=== PATIENT | female | born 1970 | race Caucasian/White ===

== ENCOUNTER → 2022-03-19 13:42 | Outpatient (BNVA) | payer OTHER, SELFPAY | PROVIDERS: PCP Internal Medicine; Visit Provider Surgery | DX: K42.9 Umbilical hernia without obstruction or gangrene (principal); M54.9 Dorsalgia, unspecified; Z79.891 Long term (current) use of opiate analgesic | CPT/HCPCS: 99202 ==

== ENCOUNTER 2022-08-22 13:29 | Outpatient (REF) | payer OTHER, SELFPAY ==
--- NOTE | ~2022-08-22 | XR_ITS ---
EXAMINATION: XR LUMBOSACRAL SPINE CLINICAL INFORMATION: Dorsalgia. COMPARISON: None available. TECHNIQUE: AP and lateral views of the lumbar spine and lateral view of the lumbosacral junction. FINDINGS: Vertebral body heights are normal. At L2-L3, there is a 3 mm retrolisthesis. At L3-L4 and L5-S1, there is mild posterior disc space narrowing. The remaining disc spaces are relatively well-maintained. No acute fracture or spondylolisthesis is seen. There is moderate anterior spondylosis at L2-L3 and L3-L4. The posterior elements are intact. The paravertebral soft tissues are unremarkable. XR/XR lumbar spine 2-3V IMPRESSION: 1. There is moderate degenerative disc disease at L2-L3, and mild degenerative disc disease is seen at L3-L4 and L5-S1. 2. There is moderate anterior spondylosis at L2-L3 and L3-L4.
== END 2022-08-22 13:30 | disposition home or self-care (01) ==
LOC: HO.XRAY 13:29
PROVIDERS: PCP Internal Medicine; Visit Provider Internal Medicine
DX: M54.9 Dorsalgia, unspecified (principal)
CPT/HCPCS: 72100

== ENCOUNTER 2023-08-18 15:37 | Outpatient (AMB) | payer OTHER, SELFPAY ==
--- NOTE | 2023-08-18 15:52 | MHC.OFFVIS ---
Intake Vital Signs 08/18/23 15:58 08/18/23 15:58 Height 5 ft 7 in Weight 201 lb BMI 31.5 BP 130/74 Blood Pressure Location Lt brachial Position Sitting Respiration 16 Pulse 80 Intake Visit Reasons: umbilical hernia Intake Note: Pt states, I have a hernia and I want to get it removed. c/o increase in size and discomfort, interfering with daily life. Appliance Service Representative Required: No Allergies No Known Allergies Allergy (Verified 08/18/23 15:53) Medication List - Last Reconciled 08/18/23 by Asael Madrid RN methadone 80 mg PO Q4H HPI HPI Comments History of Present Illness Details 52-year-old female presenting with complaints of an umbilical hernia which is been present for several years but is gradually increasing in size. She reports a prior history of bladder surgery as a child but feels this is not associated with the prior incision. She does report complaints of constipation and frequently requires medication to have a bowel movement including lactulose and MiraLax. She denies any nausea, vomiting, fever or chills. She denies a previous history of an umbilical hernia surgery. [facility] [place] Medical History Low back pain Back pain Umbilical hernia Surgical History History of cardiac radiofrequency ablation (RFA) History of bladder surgery Social History Housing: [facility] Patient Tobacco Use Status: Former Tobacco user Quit Date: 2016 Tobacco use type: Cigarette e-Cigarette/Vaping Use: Never Used service: No Current occupational status: unemployed Review of Systems Const All systems reviewed & are unremarkable except as noted in HPI and below Denies chills, Denies fever(s), Denies headache(s), Denies poor appetite and Denies weakness ENT Denies headache(s) Card Denies chest pain, Denies irregular heart rhythm, Denies palpitations and Denies dyspnea Resp Denies cough, Denies excessive phlegm production and Denies dyspnea GI Denies abdominal pain, Denies bloating, Denies change in bowel habits, Denies constipation, Denies heartburn, Denies diarrhea, Denies nausea and Denies vomiting Denies urinary frequency Musc Denies back pain, Denies muscle weakness and Denies numbness Skin/Breast Denies changing lesions and Denies unusual bruising Neuro Denies headache(s), Denies numbness, Denies paresthesias and Denies weakness Psych Denies anxiety and Denies depression Endo Denies palpitations Stevan/Lymph Denies lymphadenopathy Physical Exam Vital Signs: Last Vital Signs Pulse 80 08/18/23 15:58 Resp 16 08/18/23 15:58 BP 130/74 08/18/23 15:58 BMI result Body Mass Index 31.5 Const General: cooperative and no acute distress Nutritional Appearance: well nourished Orientation/consciousness: patient oriented x3 Limitations: no limitations HEENT Head: Yes normocephalic and Yes atraumatic Ears: hearing grossly normal bilaterally Resp Effort & Inspection: normal respiratory effort, no audible wheezes, no cough and no respiratory distress Cardio Jugular venous distension: no JVD GI Other: 4 cm reducible umbilical hernia noted in the standing position. The hernia increases in size with Valsalva maneuvers but does reduce with light pressure. No overlying skin changes are appreciated. Inspection: Yes normal to inspection Skin Other: Warm, dry, no rash Neuro General: patient oriented x3 Extrem General: Yes no clubbing, cyanosis or edema Assessment & Plan Assessment & Plan (1) Umbilical hernia: Code(s): K42.9 - Umbilical hernia without obstruction or gangrene Plan 52-year-old female with a reducible umbilical hernia measuring approximately 4 cm in diameter. I recommended repair of this umbilical hernia with mesh and after discussion of the procedure, risks, and alternatives, she consents to the repair of umbilical hernia with mesh as a short-stay surgery. Coding Level of Care Code New Pt Level 4 (26618) Diagnoses Umbilical hernia K42.9
[2023-08-18 15:58] VITALS: BP 130/74; PULSE 80; RESP 16; BMI 31.5
== END 2023-08-18 16:31 | disposition home or self-care (01) ==
PROVIDERS: PCP Internal Medicine; Visit Provider Surgery
DX: K42.9 Umbilical hernia without obstruction or gangrene (principal)
CPT/HCPCS: 99204

== ENCOUNTER → 2023-08-18 15:37 | Outpatient (BNVA) | payer OTHER, SELFPAY | PROVIDERS: PCP Internal Medicine; Visit Provider Surgery | DX: K42.9 Umbilical hernia without obstruction or gangrene (principal) | CPT/HCPCS: 99202 ==

== ENCOUNTER 2023-08-31 07:03 | Day surgery (SDC) | payer OTHER, SELFPAY ==
--- NOTE | 2023-08-27 13:17 | HO.ANESPROP2 ---
Documented by User: Chantelle Montalvo NP 08/27/23 13:22 HPI - Anesthesia Eval Consult details Narrative: 52yo F for Hernia Umbilical Reducible with mesh Methadone daily Hx polysub PMFSH Active Problems Active Problems: All Active Problems (Updated 08/27/23 @ 08:49 by Dee Dee Flood, YOMAIRA) Chronic prescription opiate use (Acute) Umbilical hernia (Acute) Back pain (Acute) Low back pain (Acute) Past Medical History Medical History Arthritis Varicose veins of both lower extremities Infection Opioid abuse Neuralgia Menorrhagia Ex-cigarette smoker Anxiety Agoraphobia SVT (supraventricular tachycardia) Polysubstance abuse Low back pain Back pain Umbilical hernia Surgical History Surgical History (Updated 08/31/23 @ 07:44 by Lacey Vaz RN) Status post excision of lipoma H/O dilation and curettage History of cardiac radiofrequency ablation (RFA) History of bladder surgery Social History Social History Housing: House Patient Tobacco Use Status: Former Tobacco user Quit Date: 2016 Tobacco use type: Cigarette e-Cigarette/Vaping Use: Never Used Advance Directives: No Advance Directives Information Provided: Yes service: No Current occupational status: unemployed Meds Allergies Allergy/AdvReac Type Severity Reaction Status Date / Time No Known Allergies Allergy Verified 08/31/23 07:44 Home Medications Medication Instructions Recorded Confirmed Last Taken Type methadone 10 mg/mL oral concentrate 80 mg PO DAILY 08/18/23 08/26/23 08/31/23 06:30 History Assessment and Plan Assessment Anesthesia Assessment: Chart Reviewed Documented by User: Brodie Fraser MD 08/31/23 07:56 PMFSH Past Medical History Medical History Arthritis Varicose veins of both lower extremities Infection Opioid abuse Neuralgia Menorrhagia Ex-cigarette smoker Anxiety Agoraphobia SVT (supraventricular tachycardia) Polysubstance abuse Low back pain Back pain Umbilical hernia Family History Family history of problems with anesthesia: No Surgical History Surgical History (Updated 08/31/23 @ 07:44 by Lacey Vaz RN) Status post excision of lipoma H/O dilation and curettage History of cardiac radiofrequency ablation (RFA) History of bladder surgery History of Problems with Anesthesia: No Social History Social History Housing: House Patient Tobacco Use Status: Former Tobacco user Quit Date: 2016 Tobacco use type: Cigarette e-Cigarette/Vaping Use: Never Used Advance Directives: No Advance Directives Information Provided: Yes service: No Current occupational status: unemployed Meds Allergies Allergy/AdvReac Type Severity Reaction Status Date / Time No Known Allergies Allergy Verified 08/31/23 07:44 Home Medications Medication Instructions Recorded Confirmed Last Taken Type methadone 10 mg/mL oral concentrate 80 mg PO DAILY 08/18/23 08/26/23 08/31/23 06:30 History Exam Airway Mallampati Class: II TM Dist: >3cm Neck ROM: Full Loose/Missing/Broken Teeth: Yes (multiple cracked and broken, poor) Heart: rrr Lungs: cta Assessment and Plan Final Anesthetic Review Family History of Problems with Anesthesia: No History of Problems with Anesthesia: No NPO: Yes ASA Class: II Final Preanesthetic Review: No Changes in Pt Med Stat, Meds/Allgs Chart Reviewed, Consent Obtained/Reviewed and Anes Risks/Benef Reviewed Patient Risk: Intermediate Procedure Risk: Low Anesthetic Plan Anesthetic Plan: GA Disposition: Standard PACU
[2023-08-31] VITALS (9 sets, daily range): BP systolic 142–176; BP diastolic 66–93; PULSE 72–82; RESP 12–20; TEMP 36.1–36.3; O2SAT 88–100; BMI 31.6
[2023-08-31] MEDS: Lactated Ringers 1,000 ML 100 ML IVCONT (08:19)
--- NOTE | 2023-08-31 08:20 | MHC.SHP ---
Pre-Procedural Eval Section A - 24 Hr Update-Section A only Date of Service: 08/31/23 The patient is an INPATIENT: No Changes since office visit: Yes Patient answered all questions; No Cold of Flu in the past 2 weeks, No New Medical Problems and No Changes in Medication The patient has been examined within 24 hours of the surgical procedure. The History & Physical has been completed within 30 days and I have reviewed it.: Yes Section B - Complete if H&P > 30 days Chief Complaint: Umbilical hernia without obstruction or gangrene Allergies: Allergies Allergy/AdvReac Type Severity Reaction Status Date / Time No Known Allergies Allergy Verified 08/31/23 07:44 Plan Diagnosis/Plan: Unchanged I have reviewed the history and physical and performed a pertinent physical examination on my patient. No changes have occurred unless specified. Time Spent With Patient Time: Total time managing care of this patient today ____ minutes.
--- NOTE | 2023-08-31 08:34 | W.PM.OPN ---
Operative Note Operative Note Date of Service: 08/31/23 Narrative: Preoperative diagnosis: Umbilical hernia, reducible Postoperative diagnosis: Same Procedure: Repair of umbilical hernia with mesh Surgeon: Rick Gamble MD Polisher And Sander: Helen Garcia PA-C, REMI Delong Anesthesia: General LMA Indications for procedure: 52-year-old female patient presenting with a reducible 4 cm umbilical hernia. Operative findings: 4 cm umbilical hernia defect Specimen: None Estimated blood loss: 2 mL Complications: None Procedure details: Patient was brought to the OR placed in a supine position. After administering general anesthesia the patient's abdomen was prepped with ChloraPrep and draped in a sterile fashion. A surgical time-out was called the consent confirmed. Patient received preoperative antibiotics and Venodyne boots were in place. Local anesthesia was then infiltrated across the for portion of the umbilicus in a transverse fashion. Incision was then made with a scalpel and carried down into the subcutaneous tissue. The hernia sac was then dissected from the surrounding subcutaneous tissue down to the fascial defect. Hernia sac was entered and omentum found within the hernia sac. This was adherent to the peritoneal sac therefore after lysis of adhesions, the omentum was returned to the abdominal cavity. The sac was then completely dissected into the preperitoneal space. The sac was then reduced into the abdominal cavity and a preperitoneal space further defined using electrocautery. A 6.4 cm round Ventralex mesh was then obtained. This was deployed within the preperitoneal space and secured in 4 quadrants using a 0 Tycron suture. Fascia was then closed over the mesh using a [id number] interrupted 0 Tycron sutures. Additional local was then infiltrated to the muscle at this time. Wounds were then irrigated with saline solution and suctioned dry. Umbilical skin was attached to the fascia using a 3-0 Polysorb suture. Dermis was reapproximated using interrupted 3-0 Polysorb sutures. Skin was then closed using a running subcuticular 4-0 Polysorb suture. Steri-Strips, 2 x 2 gauze and Tegaderm were then applied. The patient tolerated the procedure well. Sponge, instrument, and needle counts reported as correct. The patient was transferred to PACU in stable condition.
[2023-08-31] MEDS: HYDROmorphone HCl 0.5 MG/0.5 ML SYRINGE IVPUSH (10:11)
== END 2023-08-31 11:45 | disposition home or self-care (01) ==
PROVIDERS: PCP Internal Medicine; Visit Provider Surgery
PROC: (CPT 49593; principal; 2023-08-31 09:00)
DX: K42.9 Umbilical hernia without obstruction or gangrene (principal); M54.50 Low back pain, unspecified; F11.90 Opioid use, unspecified, uncomplicated; Z98.890 Other specified postprocedural states; Z87.891 Personal history of nicotine dependence
CPT/HCPCS: 49593; C1781; J0690; J1100; J1170; J2250; J2405; J2704; J2795; J3010

== ENCOUNTER → 2023-08-31 07:03 | Outpatient (BNV) | payer OTHER, SELFPAY | PROVIDERS: PCP Internal Medicine; Visit Provider Surgery | DX: K42.9 Umbilical hernia without obstruction or gangrene (principal) | CPT/HCPCS: 49593 ==

== ENCOUNTER 2023-09-10 09:59 | Outpatient (AMB) | payer OTHER, SELFPAY ==
--- NOTE | 2023-09-10 10:07 | A.OFFVIS_ITS ---
Intake Intake Visit Reasons: S/p umbilical hernia repair w/ mesh Intake Note: This patient presents for a post-op assessment status post umbilical hernia repair with mesh. ([facility] pt) Pt c/o; reports swollowed water the wrong way and feels a hard lump . Director Operations Broadcast Required: No Accompanied by: Self / Same As Patient Allergies No Known Allergies Allergy (Verified 09/10/23 10:17) HPI S/p umbilical hernia repair w/ mesh HPI Details She underwent repair of an umbilical hernia with mesh with Dr. Gamble last 08/31/2023. She is here for postop visit. She currently denies significant complaints and seems to be doing well overall. [facility] Medical History Arthritis Varicose veins of both lower extremities Infection Opioid abuse Neuralgia Menorrhagia Ex-cigarette smoker Anxiety Agoraphobia SVT (supraventricular tachycardia) Polysubstance abuse Low back pain Back pain Umbilical hernia Surgical History History of umbilical hernia repair (~08/31/23) Status post excision of lipoma H/O dilation and curettage History of cardiac radiofrequency ablation (RFA) History of bladder surgery Social History Housing: House Patient Tobacco Use Status: Former Tobacco user Quit Date: 5 yrs ago Tobacco use type: Cigarette e-Cigarette/Vaping Use: Never Used service: No Current occupational status: unemployed Review of Systems Const Denies chills and Denies fever(s) Card Denies chest pain, Denies dyspnea and Denies dyspnea on exertion Resp Denies cough, Denies dyspnea and Denies dyspnea on exertion GI Denies hematochezia and Denies change in bowel habits Denies hematuria Musc Denies back pain and Denies limited range of motion Neuro Denies focal weakness and Denies convulsions Psych Denies depression and Denies mood swings Physical Exam Const General: comfortable and no acute distress Resp Effort & Inspection: normal respiratory effort GI Other: Umbilical hernia repair site clean, not infected, repair intact Palpation (GI): Soft to palpation, not firm and no guarding Assessment & Plan Assessment & Plan (1) Umbilical hernia: Code(s): K42.9 - Umbilical hernia without obstruction or gangrene Plan: Status post repair with mesh with Dr. Gamble. She is doing very well. The repair site is intact. There is no evidence of any infection. The incisions well healed. She was advised to avoid lifting anything more than 20 lb for at least 2 more weeks. She can follow up on a p.r.n. basis. Coding Level of Care Code Global (59296) Diagnoses Umbilical hernia K42.9
== END 2023-09-10 10:48 | disposition home or self-care (01) ==
PROVIDERS: PCP Internal Medicine; Visit Provider Surgery
DX: K42.9 Umbilical hernia without obstruction or gangrene (principal)
CPT/HCPCS: 99212

== ENCOUNTER → 2023-09-10 09:59 | Outpatient (BNVA) | payer OTHER, SELFPAY | PROVIDERS: PCP Internal Medicine; Visit Provider Surgery | DX: K42.9 Umbilical hernia without obstruction or gangrene (principal) | CPT/HCPCS: 99212 ==

== ENCOUNTER 2024-01-22 09:10 | Outpatient (AMB) | payer OTHER, SELFPAY ==
[2024-01-22 09:12] VITALS: BP 144/82; PULSE 85; O2SAT 95; BMI 30.5
--- NOTE | 2024-01-22 09:12 | MHC.PC.OV ---
Vital Signs 01/22/24 09:12 Height 5 ft 7 in Weight 195 lb BMI 30.5 BP 144/82 H Blood Pressure Location Lt brachial Position Sitting Pulse 85 Pulse Source Pulse Oximeter Pulse Oximetry (%) 95 Oxygen Delivery Method Room Air Intake Visit Reasons: discomfort in pelvis Clinical Trial Leader Required: No Accompanied by: Self / Same As Patient Allergies No Known Allergies Allergy (Verified 01/22/24 09:13) Medication List - Last Reconciled 01/25/24 by Wilfredo Calvert MD methadone 80 mg PO DAILY phenazopyridine 200 mg PO TID sulfamethoxazole-trimethoprim 800-160 mg 1 tab PO BID Tobacco use date assessed: 01/22/24 Dental Screening Dental Screen Date: 01/22/24 Did you have a dental visit in the last 12 months?: Yes Did you have a dental problem in the last 6 months where you did not have access to dental care?: No Was dental information given to patient?: Patient has dentist HPI discomfort in pelvis HPI Details frequent utis and suprapubic discomfort PFSH Medical History Arthritis Varicose veins of both lower extremities Infection Opioid abuse Neuralgia Menorrhagia Ex-cigarette smoker Anxiety Agoraphobia SVT (supraventricular tachycardia) Polysubstance abuse Low back pain Back pain Umbilical hernia Surgical History History of umbilical hernia repair (~08/31/23) Status post excision of lipoma H/O dilation and curettage History of cardiac radiofrequency ablation (RFA) History of bladder surgery Social History Housing: House Patient Tobacco Use Status: Former Tobacco user Tobacco use type: Cigarette e-Cigarette/Vaping Use: Never Used service: No Current occupational status: unemployed Cognitive needs: No Hearing needs: No Vision needs: Yes Questionnaire PHQ-9 Over the last 2 weeks, how often have you been bothered by any of the following problems? 1. Little interest or pleasure in doing things: not at all 2. Feeling down, depressed, or hopeless: not at all 3. Trouble falling or staying asleep, or sleeping too much: not at all 4. Feeling tired or having little energy: not at all 5. Poor appetite or overeating: not at all 6. Feeling bad about yourself - or that you are a failure or have let yourself or your family down: not at all 7. Trouble concentrating on things, such as reading the newspaper or watching television: not at all 8. Moving or speaking so slowly that other people could have noticed. Or the opposite - being so fidgety or restless that you have been moving around a lot more than usual: not at all 9. Thoughts that you would be better off or of hurting yourself in some way: not at all Total score: 0 Depression Screening Interpretation: Negative Depression Screening Done: Yes 69313 - PHQ-9 Billing: Yes Source: Developed by Drs. Neri Winter, Tasneem Jackson, Hoang Dillard and colleagues, with an educational katelyn from [employer]. Thrive Questionnaire Date Thrive assessed: 01/22/24 I am a: Patient What is your living situation today?: I have a steady place to live Within the past 12 months, did the food you bought not last and you didn't have the money to get more?: Never true Within the past 12 months, did you worry whether your food would run out before you got money to buy more?: Never true THRIVE Score: 0 AUDIT C Alcohol Use Questionnaire (AUDIT-C) 1. How often do you have a drink containing alcohol?: Never Total Score: 0 Score Reviewed/Action Taken: Yes PEGGY-7 AMB Questionnaire PEGGY-7 Date PEGGY - 7 assessed: 01/22/24 Feeling nervous, anxious, or on edge: 0 = Not at all Not being able to stop or control worryin = Not at all Worrying too much about different things: 0 = Not at all Trouble relaxin = Not at all Being so restless that it is hard to sit still: 0 = Not at all Becoming easily annoyed or irritable: 0 = Not at all Feeling afraid as if something awful might happen: 0 = Not at all Total PEGGY-7 score (0-4 normal; 5-9 mild; 10-14 moderate; 15-21 severe): 0 Source: Developed by Drs. Neri Winter, Tasneem Jackson, Hoang Dillard and colleagues, with an educational katelyn from [employer]. PEGGY-7 Assessment Billing PGEGY-7 Assessment Tool: PEGGY-7 Assessment 10420 Review of Systems Const Denies chills, Denies headache(s) and Denies weight loss ENT Denies headache(s) Card Denies chest pain, Denies syncope, Denies irregular heart rhythm and Denies dyspnea Resp Denies chest congestion, Denies cough and Denies dyspnea GI Denies change in stool character, Denies nausea and Denies vomiting Musc Denies deformity and Denies joint swelling Neuro Denies syncope and Denies headache(s) Physical exam (Primary Care) Vital Signs: Last Vital Signs Pulse 85 01/22/24 09:12 BP 144/82 H 01/22/24 09:12 Pulse Ox 95 01/22/24 09:12 Oxygen Delivery Method Room Air 01/22/24 09:12 BMI result Body Mass Index 30.5 Tobacco/Smoking Status: Tobacco use Status Tobacco use date assessed 01/22/24 01/22/24 09:19 Patient Tobacco Use Status Former Tobacco user 01/22/24 09:19 Tobacco use type Cigarette 01/22/24 09:19 e-Cigarette/Vaping Use Never Used 01/22/24 09:19 PHQ-9: PHQ-9 Score PHQ-9: Total score 0 01/25/24 08:23 Depression Screening Interpretation: Negative Thrive Assessment: Date of Thrive Assessment Date Thrive assessed 01/22/24 01/22/24 09:19 Const General: cooperative, comfortable, no acute distress and alert Neck Neck: Yes no lymphadenopathy Thyroid: Thyroid normal Resp Effort & Inspection: normal respiratory effort Auscultation: clear to auscultation bilaterally Percussion: percussion normal Cardio Jugular venous distension: no JVD Palpation: normal PMI Rate: regular rate Rhythm: regular rhythm Heart sounds: S1 normal heart sound present and S2 normal heart sound present GI Inspection: Yes normal to inspection Palpation (GI): No hepatosplenomegaly present Skin General skin exam: no rashes or lesions noted Extrem General: Yes no clubbing, cyanosis or edema Assessment and Plan Assessment & Plan (1) Frequent UTI: Code(s): N39.0 - Urinary tract infection, site not specified Plan: urol referral Orders: Referrals Urology Referral N39.0 - Urinary tract infection, site not specified Coding Level of Care Code Est Pt Level 3 (04684) Diagnoses Frequent UTI N39.0 Additional Codes PEGGY-7 Assessment Billing - PEGGY-7 Assessment Tool: PEGGY-7 Assessment 71423 ([id number])
== END 2024-01-22 09:39 | disposition home or self-care (01) ==
PROVIDERS: PCP Internal Medicine; Visit Provider Internal Medicine
DX: N39.0 Urinary tract infection, site not specified (principal)
CPT/HCPCS: 99213

== ENCOUNTER → 2024-02-29 13:44 | Outpatient (BNVA) | payer OTHER, SELFPAY | PROVIDERS: PCP Internal Medicine; Visit Provider Internal Medicine ==

== ENCOUNTER 2024-03-23 08:53 | Outpatient (AMB) | payer OTHER, SELFPAY ==
--- NOTE | 2024-03-23 08:55 | MHC.OFFVIS ---
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 She is a patient Dr. Calvert. She is seen for the following urologic conditions - recurrent UTI Referral from PCP No available microbiology PVR 0 cc Seen at [facility] emergency department with dysuria, frequency. Treated with Bactrim. Has concomitant constipation while on methadone UA today negative Prior surgery for bladder pockets at 8 years old Indication for MiraLax small amount daily to improve bowel emptying PFSH Medical History Arthritis Varicose veins of both lower extremities Infection Opioid abuse Neuralgia Menorrhagia Ex-cigarette smoker Anxiety Agoraphobia SVT (supraventricular tachycardia) Polysubstance abuse Low back pain Back pain Umbilical hernia Surgical History History of umbilical hernia repair (~08/31/23) Status post excision of lipoma H/O dilation and curettage History of cardiac radiofrequency ablation (RFA) History of bladder surgery Social History Housing: House Patient Tobacco Use Status: Former Tobacco user Tobacco use type: Cigarette e-Cigarette/Vaping Use: Never Used service: No Current occupational status: unemployed Cognitive needs: No Hearing needs: No Vision needs: Yes Review of Systems Const Denies chills and Denies fever(s) Card Reports no additional complaints and Denies syncope Resp Denies cough GI Denies abdominal pain and Denies heartburn Reports as per HPI and Denies change in libido Neuro Denies syncope Psych Denies change in libido Endo Denies change in libido Physical Exam Const General: cooperative, healthy appearing, comfortable and no acute distress Orientation/consciousness: patient oriented x3 HEENT Face and sinus: Yes normal facial exam Mouth: moist mucous membranes Neck Neck: Yes normal visual inspection, Yes full ROM and Yes trachea midline Chest Chest palpation & inspection: normal inspection of the chest Resp Effort & Inspection: normal respiratory effort, able to speak in complete sentences and no respiratory distress GI Inspection: Yes normal to inspection Back/Spine/Pelvis Cervical Spine: normal cervical lordosis Thoracic/Lumbar Spine: thoracic and lumbar spine normal to inspection Skin General skin exam: no rashes or lesions noted Neuro General: patient oriented x3, gait normal, tone normal and moves all extremities Extrem General: Yes normal to inspection and Yes capillary refill normal Office Procedures Post Void Residual Post Residual Void Post Void Residual (PVR): 0 12039-[id number] Void Residual by ultrasound Results AMB Urinalysis, Automated UA Leukoctes 0 Flynn/uL Last Edit by Jenna Carter [facility] on 03/23/24 09:15 UA Nitrite Negative Last Edit by Jenna Carter [facility] on 03/23/24 09:15 UA Urobilinogen 0.2 mg/dL Last Edit by Jenna Carter [facility] on 03/23/24 09:15 UA Protein 15 mg/dL Last Edit by Jenna Carter [facility] on 03/23/24 09:15 UA pH 6.0 Last Edit by Jenna Carter [facility] on 03/23/24 09:15 UA Blood 0 Live/uL Last Edit by Jenna Carter [facility] on 03/23/24 09:15 UA Specific [place] 1.025 Last Edit by Jenna Carter [facility] on 03/23/24 09:15 UA Ketone Negative Last Edit by Jenna Carter [facility] on 03/23/24 09:15 UA Bilirubin 0 mg/dL Last Edit by Jenna Carter [facility] on 03/23/24 09:15 UA Glucose 0 mg/dL Last Edit by Jenna Carter [facility] on 03/23/24 09:15 Assessment & Plan Assessment & Plan (1) Frequent UTI: Code(s): N39.0 - Urinary tract infection, site not specified Category: Medical (2) Constipation: Code(s): K59.00 - Constipation, unspecified Category: Medical Plan P.r.n. follow-up Orders: Orders AMB Urinalysis Automated Today Z13.9 - Encounter for screening, unspecified AMB Post Void Residual by ultrasound Today N39.0 - Urinary tract infection, site not specified Patient Instructions: Imaging studies, laboratory and physical exam results were discussed and reviewed in detail. No major barriers to patient understanding were identified. An opportunity to ask questions regarding the treatment plan was provided. All questions were answered. The patient expressed understanding and agreement with the above treatment plan. The patient is aware they should contact our office by phone for worsening of their current condition or the appearance of new urologic symptoms. Compliance is encouraged with any medications and followup testing that is ordered. It is a privilege to participate in the urologic care of your patient. If you have any questions or concerns regarding treatment for the above conditions, or other urologic issues, please do not hesitate to contact me. The office telephone contact is [phone]. This note is constructed using voice recognition software. While every effort has been made to ensure accuracy sieve grader tender errors may have been included. Yours sincerely, Dr Ilia Mendoza MD, [facility] - Urology Providers of Expert, Compassionate Care for the Genitourinary System Coding Level of Care Code New Pt Level 3 (19719) Diagnoses Frequent UTI N39.0 Constipation K59.00 CPT Codes Post Residual Void - PVR CPT Code: 50998-Nnii Void Residual by ultrasound ([id number])
== END 2024-03-23 09:28 | disposition home or self-care (01) ==
PROVIDERS: PCP Internal Medicine; Visit Provider Urology
DX: N39.0 Urinary tract infection, site not specified (principal); K59.00 Constipation, unspecified; Z13.9 Encounter for screening, unspecified
CPT/HCPCS: 99203

== ENCOUNTER → 2024-03-23 08:53 | Outpatient (BNVA) | payer OTHER, SELFPAY | PROVIDERS: PCP Internal Medicine; Visit Provider Urology | DX: N39.0 Urinary tract infection, site not specified (principal); K59.00 Constipation, unspecified | CPT/HCPCS: 51798; 81003; 99202 ==

== ENCOUNTER 2024-03-24 13:27 | Outpatient (AMB) | payer OTHER, SELFPAY ==
[2024-03-24 13:28] VITALS: BP 146/80; PULSE 82; O2SAT 94; BMI 31.0
--- NOTE | 2024-03-24 13:28 | A.OFFPC_ITS ---
Vital Signs 03/24/24 13:28 Height 5 ft 7 in Weight 198 lb BMI 31.0 BP 146/80 H Blood Pressure Location Lt brachial Position Sitting Pulse 82 Pulse Source Pulse Oximeter Pulse Oximetry (%) 94 Oxygen Delivery Method Room Air Intake Visit Reasons: PE Intake Note: Pt reports infection on RT ankle due to flea bites. 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 Accompanied by: Self / Same As Patient Allergies No Known Allergies Allergy (Verified 03/24/24 13:28) Medication List - Last Reconciled 03/25/24 by Wilfredo Calvert MD cephalexin 250 mg PO BID methadone 80 mg PO DAILY Tobacco use date assessed: 01/22/24 Dental Screening Dental Screen Date: 01/22/24 HPI PE HPI Details substance abuse on Methadone; doing well [facility] Medical History Arthritis Varicose veins of both lower extremities Infection Opioid abuse Neuralgia Menorrhagia Ex-cigarette smoker Anxiety Agoraphobia SVT (supraventricular tachycardia) Polysubstance abuse Low back pain Back pain Umbilical hernia Surgical History History of umbilical hernia repair (~08/31/23) Status post excision of lipoma H/O dilation and curettage History of cardiac radiofrequency ablation (RFA) History of bladder surgery Social History Housing: House Patient Tobacco Use Status: Former Tobacco user Tobacco use type: Cigarette e-Cigarette/Vaping Use: Never Used Second Hand Smoke Exposure: No service: No Current occupational status: unemployed Cognitive needs: No Hearing needs: No Vision needs: Yes Questionnaire PHQ-9 Over the last 2 weeks, how often have you been bothered by any of the following problems? 7. Trouble concentrating on things, such as reading the newspaper or watching television: not at all Source: Developed by Drs. Neri Winter, Tasneem Jackson, Hoang Dillard and colleagues, with an educational katelyn from [employer]. Thrive Questionnaire Date Thrive assessed: 02/29/24 Within the past 12 months, did you worry whether your food would run out before you got money to buy more?: Often true Do you have trouble paying for medicines?: No Do you have trouble getting transportation to medical appointments?: Yes Do you have trouble paying your heating and electricity bill?: Yes Do you have trouble taking care of your child, family member or friend?: No Do you have trouble with day-to-day activities such as bathing, preparing meals, shopping, managing finances, etc.?: Yes Are you currently unemployed and looking for a job?: No Are you interested in more education?: No Please select the resources that you would like help with: None Currently or been in a relationship where the following occur: No concerns reported THRIVE Score: 3 AUDIT C Alcohol Use Questionnaire (AUDIT-C) 1. How often do you have a drink containing alcohol?: Never Total Score: 0 PEGGY-7 AMB Questionnaire PEGGY-7 Date PEGGY - 7 assessed: 01/22/24 Feeling nervous, anxious, or on edge: 2 = More than half the days Not being able to stop or control worryin = More than half the days Worrying too much about different things: 2 = More than half the days Trouble relaxin = Several days Being so restless that it is hard to sit still: 0 = Not at all Becoming easily annoyed or irritable: 1 = Several days Feeling afraid as if something awful might happen: 0 = Not at all Total PEGGY-7 score (0-4 normal; 5-9 mild; 10-14 moderate; 15-21 severe): 8 Source: Developed by Drs. Neri Winter, Tasneem Jackson, Hoang Dillard and colleagues, with an educational katelyn from [employer]. Review of Systems Const Denies chills, Denies fatigue, Denies headache(s) and Denies weight loss Eyes Denies change in vision, Denies diplopia and Denies eye pain ENT Denies vertigo, Denies dizziness, Denies headache(s) and Denies nasal discharge Card Denies chest pain, Denies rapid heart rate and Denies dyspnea on exertion Resp Denies chest congestion, Denies cough, Denies pain with cough and Denies dyspnea on exertion GI Denies abdominal pain, Denies hematochezia and Denies change in bowel habits Musc Denies myalgias, Denies arthralgias and Denies joint swelling Skin/Breast Denies lesions and Denies unusual bruising Neuro Denies vertigo, Denies dizziness, Denies headache(s) and Denies focal weakness Endo Denies fatigue Physical exam (Primary Care) Vital Signs: Last Vital Signs Pulse 82 03/24/24 13:28 BP 146/80 H 03/24/24 13:28 Pulse Ox 94 03/24/24 13:28 Oxygen Delivery Method Room Air 03/24/24 13:28 BMI result Body Mass Index 31.0 Tobacco/Smoking Status: Tobacco use Status Tobacco use date assessed 01/22/24 03/24/24 13:33 Patient Tobacco Use Status Former Tobacco user 03/24/24 13:33 Tobacco use type Cigarette 03/24/24 13:33 e-Cigarette/Vaping Use Never Used 03/24/24 13:33 Thrive Assessment: Date of Thrive Assessment Date Thrive assessed 02/29/24 03/24/24 13:33 Currently or been in a relationship where the following occur: No concerns reported Const General: cooperative, healthy appearing and no acute distress Orientation/consciousness: oriented to person, oriented to place and oriented to time HENMT Head: Yes normal to inspection, Yes normocephalic and Yes atraumatic Mouth: Normal oral and palatal mucosa present and tongue normal Throat: Yes posterior oropharynx normal and Yes uvula midline Eyes General: appearance normal, both eyes and all related structures Neck Neck: Yes normal visual inspection, Yes full ROM and Yes no lymphadenopathy Thyroid: Thyroid normal Carotids: normal carotid upstroke Chest Chest palpation & inspection: normal inspection of the chest Resp Effort & Inspection: normal respiratory effort and able to speak in complete sentences Auscultation: clear to auscultation bilaterally Cardio Jugular venous distension: no JVD Palpation: normal PMI Rate: regular rate Rhythm: regular rhythm Heart sounds: S1 normal heart sound present and S2 normal heart sound present GI Inspection: Yes normal to inspection Palpation (GI): Soft to palpation and No hepatosplenomegaly present Auscultation: normal bowel sounds General: Yes no CVA tenderness Back/Spine/Pelvis Back: no CVA tenderness Skin General skin exam: no rashes or lesions noted Neuro General: oriented to person, oriented to place and oriented to time Extrem General: Yes normal to inspection and Yes full ROM Coding Level of Care Code Est Pt Prev Care 40-64y(82346) Diagnoses Physical exam Z00.00 Substance abuse F19.10 Assessment & Plan Assessment & Plan (1) Physical exam: Code(s): Z00.00 - Encounter for general adult medical examination without abnormal findings Category: Medical Plan: stable; do labs (2) Substance abuse: Code(s): F19.10 - Other psychoactive substance abuse, uncomplicated Category: Medical Plan: as per methadone clinic
== END 2024-03-24 13:48 | disposition home or self-care (01) ==
PROVIDERS: PCP Internal Medicine; Visit Provider Internal Medicine
DX: Z00.00 Encounter for general adult medical examination without abnormal findings (principal); F19.10 Other psychoactive substance abuse, uncomplicated

== ENCOUNTER → 2024-03-24 13:27 | Outpatient (BNVA) | payer OTHER, SELFPAY | PROVIDERS: PCP Internal Medicine; Visit Provider Internal Medicine | DX: Z00.01 Encounter for general adult medical examination with abnormal findings (principal); F19.10 Other psychoactive substance abuse, uncomplicated | CPT/HCPCS: 99396 ==

== ENCOUNTER 2024-04-18 08:09 | Outpatient (AMB) | payer OTHER, SELFPAY ==
[2024-04-18 08:44] VITALS: BP 124/84; PULSE 81; O2SAT 95; BMI 31.3
--- NOTE | 2024-04-18 08:44 | A.OFFPC_ITS ---
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 by: Self / Same As Patient Allergies No Known Allergies Allergy (Verified 04/18/24 08:45) Medication List - Last Reconciled 04/19/24 by Wilfredo Calvert MD cephalexin 250 mg PO BID methadone 80 mg PO DAILY Tobacco use date assessed: 04/18/24 Dental Screening Dental Screen Date: 04/18/24 Did you have a dental visit in the last 12 months?: Yes Did you have a dental problem in the last 6 months where you did not have access to dental care?: No Was dental information given to patient?: Patient has dentist HPI Follow Up HPI Details remains on methadone for substance abuse; doing well [facility] Medical History Arthritis Varicose veins of both lower extremities Infection Opioid abuse Neuralgia Menorrhagia Ex-cigarette smoker Anxiety Agoraphobia SVT (supraventricular tachycardia) Polysubstance abuse Low back pain Back pain Umbilical hernia Surgical History History of umbilical hernia repair (~08/31/23) Status post excision of lipoma H/O dilation and curettage History of cardiac radiofrequency ablation (RFA) History of bladder surgery Social History Housing: House Patient Tobacco Use Status: Former Tobacco user Tobacco use type: Cigarette e-Cigarette/Vaping Use: Never Used Second Hand Smoke Exposure: No service: No Current occupational status: unemployed Cognitive needs: No Hearing needs: No Vision needs: Yes Questionnaire PHQ-9 Over the last 2 weeks, how often have you been bothered by any of the following problems? 1. Little interest or pleasure in doing things: not at all 2. Feeling down, depressed, or hopeless: not at all 3. Trouble falling or staying asleep, or sleeping too much: not at all 4. Feeling tired or having little energy: not at all 5. Poor appetite or overeating: not at all 6. Feeling bad about yourself - or that you are a failure or have let yourself or your family down: not at all 7. Trouble concentrating on things, such as reading the newspaper or watching television: not at all 8. Moving or speaking so slowly that other people could have noticed. Or the opposite - being so fidgety or restless that you have been moving around a lot more than usual: not at all 9. Thoughts that you would be better off or of hurting yourself in some way: not at all Total score: 0 Source: Developed by Drs. Neri Winter, Tasneem Jackson, Hoang Dillard and colleagues, with an educational katelyn from [employer]. Thrive Questionnaire Date Thrive assessed: 04/18/24 I am a: Patient What is your living situation today?: I have a steady place to live Within the past 12 months, did the food you bought not last and you didn't have the money to get more?: I choose not to answer this question Within the past 12 months, did you worry whether your food would run out before you got money to buy more?: Often true Do you have trouble paying for medicines?: No Do you have trouble getting transportation to medical appointments?: Yes Do you have trouble paying your heating and electricity bill?: Yes Do you have trouble taking care of your child, family member or friend?: No Do you have trouble with day-to-day activities such as bathing, preparing meals, shopping, managing finances, etc.?: Yes Are you currently unemployed and looking for a job?: No Are you interested in more education?: No Please select the resources that you would like help with: None Currently or been in a relationship where the following occur: No concerns reported THRIVE Score: 3 AUDIT C Alcohol Use Questionnaire (AUDIT-C) 1. How often do you have a drink containing alcohol?: Never Total Score: 0 PEGGY-7 AMB Questionnaire PEGGY-7 Date PEGGY - 7 assessed: 04/18/24 Feeling nervous, anxious, or on edge: 2 = More than half the days Not being able to stop or control worryin = More than half the days Worrying too much about different things: 2 = More than half the days Trouble relaxin = Several days Being so restless that it is hard to sit still: 0 = Not at all Becoming easily annoyed or irritable: 1 = Several days Feeling afraid as if something awful might happen: 0 = Not at all Total PEGGY-7 score (0-4 normal; 5-9 mild; 10-14 moderate; 15-21 severe): 8 Source: Developed by Drs. Neri Winter, Tasneem Jackson, Hoang Dillard and colleagues, with an educational katelyn from [employer]. Review of Systems Const Denies chills, Denies headache(s) and Denies weight loss ENT Denies headache(s) Card Denies chest pain, Denies syncope, Denies irregular heart rhythm and Denies dyspnea Resp Denies chest congestion, Denies cough and Denies dyspnea GI Denies abdominal pain, Denies change in stool character, Denies nausea and Denies vomiting Musc Denies deformity and Denies joint swelling Neuro Denies syncope and Denies headache(s) Physical exam (Primary Care) Vital Signs: Last Vital Signs Pulse 81 04/18/24 08:44 BP 124/84 04/18/24 08:44 Pulse Ox 95 04/18/24 08:44 Oxygen Delivery Method Room Air 04/18/24 08:44 BMI result Body Mass Index 31.3 Tobacco/Smoking Status: Tobacco use Status Tobacco use date assessed 04/18/24 04/18/24 08:50 Patient Tobacco Use Status Former Tobacco user 04/18/24 08:50 Tobacco use type Cigarette 04/18/24 08:50 e-Cigarette/Vaping Use Never Used 04/18/24 08:50 PHQ-9: PHQ-9 Score PHQ-9: Total score 0 04/18/24 09:11 Thrive Assessment: Date of Thrive Assessment Date Thrive assessed 04/18/24 04/18/24 08:50 Currently or been in a relationship where the following occur: No concerns reported Const General: cooperative, comfortable, no acute distress and alert Neck Neck: Yes no lymphadenopathy Thyroid: Thyroid normal Resp Effort & Inspection: normal respiratory effort Auscultation: clear to auscultation bilaterally Percussion: percussion normal Cardio Jugular venous distension: no JVD Palpation: normal PMI Rate: regular rate Rhythm: regular rhythm Heart sounds: S1 normal heart sound present and S2 normal heart sound present GI Inspection: Yes normal to inspection Palpation (GI): No hepatosplenomegaly present Skin General skin exam: no rashes or lesions noted Extrem General: Yes no clubbing, cyanosis or edema Office Procedures Flu Questionnaire Does the patient have a severe egg allergy?: No Does the patient have severe life threatening allergies?: No Does the patient have a fever or illness today?: No Has the patient ever had Guillain-Galt Syndrome?: No Has the patient ever had any past reaction to a flu shot?: No Immunizations Fluarix Triv [id number] (PF) 45 mcg (15 mcg x 3)/0.5 mL IM syringe Performing Provider: Wilfredo Calvert MD [facility] Administered by: RIGOBERTO Hartman on 04/18/24 09:11 Dose Route Admin Location Dispensed Lot Number Expiration Date NDC Stummel Selector 0.5 mL IM Left Deltoid 0.5 mL [id number] 11/28/24 [id number] Klood VIS Given Date VIS Provided VIS Publication Date 04/18/24 Single Vaccine 21 Eligibility Eligibility Date Funding Source Not [facility] Eligible 04/18/24 Private Coding Level of Care Code Est Pt Level 3 (75306) Diagnoses Substance abuse F19.10 Assessment & Plan Assessment & Plan (1) Substance abuse: Code(s): F19.10 - Other psychoactive substance abuse, uncomplicated Category: Medical Plan: cont current rx Orders: Orders Influenza [id number] Immunization 04/18/24 Z23 - Encounter for immunization Referrals Podiatry Referral L60.9 - Nail disorder, unspecified
== END 2024-04-18 09:12 | disposition home or self-care (01) ==
PROVIDERS: PCP Internal Medicine; Visit Provider Internal Medicine
DX: F19.10 Other psychoactive substance abuse, uncomplicated (principal)

== ENCOUNTER → 2024-04-18 08:09 | Outpatient (BNVA) | payer OTHER, SELFPAY | PROVIDERS: PCP Internal Medicine; Visit Provider Internal Medicine | DX: Z23 Encounter for immunization (principal); F19.10 Other psychoactive substance abuse, uncomplicated | CPT/HCPCS: 90471; 90656; 99212 ==

== ENCOUNTER 2024-07-20 11:00 | Outpatient (AMB) | payer OTHER, SELFPAY ==
--- NOTE | 2024-07-20 11:02 | A.OFFPC_ITS ---
Vital Signs 07/20/24 11:04 Height 5 ft 7 in Weight 201 lb 6 oz BMI 31.5 BP 120/70 Blood Pressure Location Lt brachial Position Sitting Pulse 72 Pulse Source Pulse Oximeter Temp 97.1 F Temp Source Temporal Artery Scan Pulse Oximetry (%) 98 Oxygen Delivery Method Room Air Intake Visit Reasons: Blood stools Intake Note: Patient is here to follow up on Blood in stool. Drying Supervisor Required: No Clinical Reviewer: Not Required per policy Accompanied by: Self / Same As Patient Allergies No Known Allergies Allergy (Verified 07/20/24 11:04) Medication List - Last Reconciled 07/21/24 by Wilfredo Calvert MD methadone 80 mg PO DAILY Tobacco use date assessed: 07/20/24 Dental Screening Dental Screen Date: 07/20/24 Did you have a dental visit in the last 12 months?: Yes Did you have a dental problem in the last 6 months where you did not have access to dental care?: No Was dental information given to patient?: Patient has dentist HPI Blood stools HPI Details rectal bleeding and constipation worsening for a month [facility] Medical History Arthritis Varicose veins of both lower extremities Infection Opioid abuse Neuralgia Menorrhagia Ex-cigarette smoker Anxiety Agoraphobia SVT (supraventricular tachycardia) Polysubstance abuse Low back pain Back pain Umbilical hernia Surgical History History of umbilical hernia repair (~08/31/23) Status post excision of lipoma H/O dilation and curettage History of cardiac radiofrequency ablation (RFA) History of bladder surgery Family History (Updated 07/20/24 @ 11:08 by RIGOBERTO Brand) Other Mental health disorder Social History (Updated 07/20/24 @ 11:02 by RIGOBERTO Brand) Housing: House Alcohol intake: never Patient Tobacco Use Status: Former Tobacco user Tobacco use type: Cigarette e-Cigarette/Vaping Use: Never Used Second Hand Smoke Exposure: Yes service: No Current occupational status: unemployed Cognitive needs: No Hearing needs: No Vision needs: Yes (Glasses) Questionnaire PHQ-9 Over the last 2 weeks, how often have you been bothered by any of the following problems? 1. Little interest or pleasure in doing things: not at all 2. Feeling down, depressed, or hopeless: not at all 3. Trouble falling or staying asleep, or sleeping too much: not at all 4. Feeling tired or having little energy: not at all 5. Poor appetite or overeating: not at all 6. Feeling bad about yourself - or that you are a failure or have let yourself or your family down: not at all 7. Trouble concentrating on things, such as reading the newspaper or watching television: not at all 8. Moving or speaking so slowly that other people could have noticed. Or the opposite - being so fidgety or restless that you have been moving around a lot more than usual: not at all 9. Thoughts that you would be better off or of hurting yourself in some way: not at all Total score: 0 Depression Screening Interpretation: Negative Depression Screening Done: Yes Source: Developed by Drs. Neri Winter, Tasneem Jackson, Hoang Dillard and colleagues, with an educational katelyn from [employer]. Thrive Questionnaire Date Thrive assessed: 07/20/24 AUDIT C Alcohol Use Questionnaire (AUDIT-C) 1. How often do you have a drink containing alcohol?: Never Total Score: 0 PEGGY-7 AMB Questionnaire PEGGY-7 Date PEGGY - 7 assessed: 07/20/24 Feeling nervous, anxious, or on edge: 0 = Not at all Not being able to stop or control worryin = Not at all Worrying too much about different things: 0 = Not at all Trouble relaxin = Not at all Being so restless that it is hard to sit still: 0 = Not at all Becoming easily annoyed or irritable: 0 = Not at all Feeling afraid as if something awful might happen: 0 = Not at all Total PEGGY-7 score (0-4 normal; 5-9 mild; 10-14 moderate; 15-21 severe): 0 Source: Developed by Drs. Neri Winter, Tasneem Jackson, Hoang Dillard and colleagues, with an educational katelyn from [employer]. Review of Systems Const Denies chills, Denies headache(s) and Denies weight loss ENT Denies headache(s) Card Denies chest pain, Denies syncope, Denies irregular heart rhythm and Denies dyspnea Resp Denies chest congestion, Denies cough and Denies dyspnea GI Denies abdominal pain, Reports change in stool character, Denies nausea and Denies vomiting Musc Denies deformity and Denies joint swelling Neuro Denies syncope and Denies headache(s) Physical exam (Primary Care) Vital Signs: Last Vital Signs Temp 97.1 F 07/20/24 11:04 Pulse 72 07/20/24 11:04 BP 120/70 07/20/24 11:04 Pulse Ox 98 07/20/24 11:04 Oxygen Delivery Method Room Air 07/20/24 11:04 BMI result Body Mass Index 31.5 Tobacco/Smoking Status: Tobacco use Status Tobacco use date assessed 07/20/24 07/20/24 11:09 Patient Tobacco Use Status Former Tobacco user 07/20/24 11:09 Tobacco use type Cigarette 07/20/24 11:09 e-Cigarette/Vaping Use Never Used 07/20/24 11:09 PHQ-9: PHQ-9 Score PHQ-9: Total score 0 07/20/24 11:09 Depression Screening Interpretation: Negative Thrive Assessment: Date of Thrive Assessment Date Thrive assessed 07/20/24 07/20/24 11:09 Const General: cooperative, comfortable, no acute distress and alert Neck Neck: Yes no lymphadenopathy Thyroid: Thyroid normal Resp Effort & Inspection: normal respiratory effort Auscultation: clear to auscultation bilaterally Percussion: percussion normal Cardio Jugular venous distension: no JVD Palpation: normal PMI Rate: regular rate Rhythm: regular rhythm Heart sounds: S1 normal heart sound present and S2 normal heart sound present GI Inspection: Yes normal to inspection Palpation (GI): No hepatosplenomegaly present Skin General skin exam: no rashes or lesions noted Extrem General: Yes no clubbing, cyanosis or edema Coding Level of Care Code Est Pt Level 3 (45168) Diagnoses Rectal bleeding K62.5 Assessment & Plan Assessment & Plan (1) Rectal bleeding: Code(s): K62.5 - Hemorrhage of anus and rectum Plan: refer to proctology Orders: Referrals General Surgery Referral K62.5 - Hemorrhage of anus and rectum
[2024-07-20 11:04] VITALS: BP 120/70; PULSE 72; TEMP 36.2; O2SAT 98; BMI 31.5
--- OUTSIDE RECORDS SUMMARY | 2024-07-20 11:46 | XMS_ITS ---
Author Organization [facility] Address [address] [place] [phone] Care Team Providers Care Business Continuity Specialist Name Role Phone Wilfredo Calvert MD Primary Care Provider Neri Riddle [phone] Encounters Encounter Location Date Provider Diagnosis [facility] [address] [place] [phone] 07/08/2024 Neri Saba PLAN OF TREATMENT No Information
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
--- OUTSIDE RECORDS SUMMARY | 2024-07-20 11:46 | XMS_ITS | Patient Health Record ---
Author Organization [facility] Address [address] [place] [phone] Care Team Providers Care Applications Programmer Analyst Name Role Phone Nehal HEAD, Wilfredo Primary Care Provider Neri Riddle [facility] [phone] REASON FOR REFERRAL No Information SOCIAL HISTORY Sex Assigned At : Social History Observation Description Sex Assigned At Unknown Encounters Encounter Location Date Provider Diagnosis [facility] [address] [facility] [address] [place] [phone] 07/08/2024 Neri Saba PLAN OF TREATMENT No Information Insurance Providers Payer Name Payer Address Payer Phone Subscriber Number Group Number Insured Name Patient Relationship to Insured Coverage Start Date Coverage End Date [facility] [address] [address] [place], [place] [id number] ALFIE LOZANO Self - patient is the insured
== END 2024-07-20 11:38 | disposition home or self-care (01) ==
PROVIDERS: PCP Internal Medicine; Visit Provider Internal Medicine
DX: K62.5 Hemorrhage of anus and rectum (principal)

== ENCOUNTER → 2024-07-20 11:00 | Outpatient (BNVA) | payer OTHER, SELFPAY | PROVIDERS: PCP Internal Medicine; Visit Provider Internal Medicine | DX: K62.5 Hemorrhage of anus and rectum (principal) | CPT/HCPCS: 99212 ==

== ENCOUNTER 2024-08-01 12:49 | Outpatient (AMB) | payer OTHER, SELFPAY ==
--- NOTE | 2024-08-01 12:52 | A.OFFVIS_ITS ---
Intake Visit Reasons: Rectal bleeding Intake Note: Patient referred by pcp Dr. Calvert for rectal bleeding. Started 6m. Has never had a Colonoscopy. No prior treatment. Patient c/o: constipation. Takes Miralax. Reports BM once a week. Notices blood every time after BM. Change Management Facilitator Required: No Accompanied by: Self / Same As Patient Allergies No Known Allergies Allergy (Verified 08/01/24 12:59) HPI Comments Details: Patient presents with a six-month history of bright red blood per rectum and anorectal pain with bowel movements. She has finally sought medical attention because of progression of symptoms. Patient has never had colonoscopy before. She has a significant past medical history for constipation. She states she passes a bowel movement once a week and that is usually very solid/hard. She has not noticed any change in the caliber of her stool. She denies any anal receptive practice. Patient was currently on methadone. She had a substance opiate abuse history which I am sure at contributed to her constipation issues. Chart was reviewed and patient evaluated [facility] Medical History Arthritis Varicose veins of both lower extremities Infection Opioid abuse Neuralgia Menorrhagia Ex-cigarette smoker Anxiety Agoraphobia SVT (supraventricular tachycardia) Polysubstance abuse Low back pain Back pain Umbilical hernia Surgical History History of umbilical hernia repair (~08/31/23) Status post excision of lipoma H/O dilation and curettage History of cardiac radiofrequency ablation (RFA) History of bladder surgery Family History (Updated 07/20/24 @ 11:08 by RIGOBERTO Brand) Other Mental health disorder Social History (Updated 07/20/24 @ 11:02 by RIGOBERTO Brand) Housing: House Alcohol intake: never Patient Tobacco Use Status: Former Tobacco user Tobacco use type: Cigarette e-Cigarette/Vaping Use: Never Used Second Hand Smoke Exposure: Yes service: No Current occupational status: unemployed Cognitive needs: No Hearing needs: No Vision needs: Yes (Glasses) Physical Exam GI Other: Corpulent abdomen, soft. Rectal exam demonstrates a very large/deep posterior anal fissure. Rectal exam was deferred secondary to patient was marked discomfort. Assessment & Plan Assessment & Plan (1) Chronic posterior anal fissure: Code(s): K60.1 - Chronic anal fissure Category: Surgical Plan Present, patient has a posterior anal fissure. No obvious hemorrhoids demonstrated. Her symptoms were most likely related to the chronic constipation and hard stool pushing through the anal canal causing the fissure. Patient has been given several recommendations to commence augmenting her stool function. This includes drinking more water, eating roughage but, med unusual/Citrucel/raised and bran and so forth. In the meantime, we will also arrange for her to see GI for consideration for colonoscopy to rule out any other underlying pathology as well as any off rings/suggestions they can make regarding her chronic constipation issues. Patient was see me after colonoscopy or p.r.n.. All questions answered. Coding Level of Care Code New Pt Level 4 (92704) Diagnoses Chronic posterior anal fissure K60.1
--- OUTSIDE RECORDS SUMMARY | 2024-08-01 14:58 | XMS_ITS | Clinical Summary ---
Author Organization [address] [facility] Address [address] [place] [address] Phone Care Team Providers Care Sleeve Bottom Feller Name Role Phone Giovanna Viera Primary Care Provider [phone]- [phone] Allergies No known active allergies Medications methadone [...] abuse 08/22/2005 Overview (06/10/2024): On methadone - [facility] IMO update Immunizations Name Administration Dates Next Due Hepatitis B (Rgdxvae-U-Doajf , Recombivax HB-Adult) 19yo and older 05/12/2002,03/21/2002 PPD Test 05/17/2010 Td Tetanus diptheria (Tdvax) 7yo and older 01/24 Tdap Tetanus diptheria acell ular pertussis (Boostrix; Adacel) 7yo and older 05/17/2010 Surgical History Surgery Date Site/Laterality Comments OTHER SURGICAL HISTORY age 8 PROCEDURE: [place] SLING OPERATION STRESS INCONTINENCE Family History Relation [...] Upcoming Encounters Date Type Department Care Team ([facility] st Contact Info) Description 08/08/2024 10:45 AM EDT Consult Orthopedic Surgery - [place] 250 175 [facility] [address] [place] [id number] Jamie Skinner, DPGus [address] [address] Health Maintenance Due Date Last Done Comments [...] * HIV Screening (04/19/2010) HIV Screening abstracted [facility] Provider MD HEALTH MAINTENANCE Final Result * Hepatitis C Screening (04/19/2010) Hepatitis C Screening abstracted [facility] Provider MD HEALTH MAINTENANCE Final Result * Pap Smear (04/19/2010) Pap smear negative, abstracted [facility] Provider HEALTH MAINTENANCE Final Result from Last 3 Months or Most Recently Relevant to Health Maintenance [place] [address] [address] [address]ALTH PLAN [id number] Care Teams Sleeve Bottom Feller Relationship Specialty Start Date End Date Giovanna Viera PA [address] [address] PCP - General 12/26/14
--- OUTSIDE RECORDS SUMMARY | 2024-08-01 14:58 | XMS_ITS ---
Author Organization [facility] Address [address] [place] [phone] Care Team Providers Care Supervisor Testing Name Role Phone Wilfredo Calvert MD Primary Care Provider Neri Riddle [phone] Encounters Encounter Location Date Provider Diagnosis [facility] [address] [place] [phone] 07/08/2024 Neri Saba PLAN OF TREATMENT No Information
--- OUTSIDE RECORDS SUMMARY | 2024-08-01 14:58 | XMS_ITS | Patient Health Record ---
Author Organization [facility] Address [address] [place] [phone] Care Team Providers Care Immunologist Name Role Phone Nehal HEAD, Wilfredo Primary Care Provider Neri Riddle [facility] [phone] REASON FOR REFERRAL No Information SOCIAL HISTORY Sex Assigned At : Social History Observation Description Sex Assigned At Unknown Encounters Encounter Location Date Provider Diagnosis [facility] [address] [facility] [address] [place] [phone] 07/08/2024 Neri Saba PLAN OF TREATMENT No Information Insurance Providers Payer Name Payer Address Payer Phone Subscriber Number Group Number Insured Name Patient Relationship to Insured Coverage Start Date Coverage End Date [facility] [address] [address] [place], [place] [id number] ALFIE LOZANO Self - patient is the insured
== END 2024-08-01 13:08 | disposition home or self-care (01) ==
PROVIDERS: PCP Internal Medicine; Referring Provider Internal Medicine; Visit Provider Surgery
DX: K60.1 Chronic anal fissure (principal)
CPT/HCPCS: 99204

== ENCOUNTER → 2024-08-01 12:49 | Outpatient (BNVA) | payer OTHER, SELFPAY | PROVIDERS: PCP Internal Medicine; Referring Provider Internal Medicine; Visit Provider Surgery | DX: K60.1 Chronic anal fissure (principal) | CPT/HCPCS: 99202 ==

== ENCOUNTER 2024-11-18 14:12 | Outpatient (AMB) | payer OTHER, SELFPAY ==
--- OUTSIDE RECORDS SUMMARY | 2024-07-08 06:55 | XMS_ITS ---
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
--- NOTE | 2024-11-18 14:16 | MHC.PC.OV ---
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 Calvert 07/2024 coming in for transfer of care. Presenting with chronic back pain and associated conditions. She reports chronic back pain worsening from weekly to daily, exacerbated by physical activity, with an MRI revealing arthritis and a previous diagnosis of a herniated disc. Experiences muscle spasms in her back, prescribed Flexeril, used sparingly, and frequently takes ibuprofen for pain management. Diagnosed with degenerative disc disease and spondylosis affecting lumbar spine from L2 to S1. Reports constipation, scheduled to see a food and beverage cashier, and has a history of varicose veins considering a procedure to prevent worsening. Experienced menopausal bleeding, has not seen a product development consultant recently, and has a history of SVT with an ablation done ten years ago. [facility] Medical History Substance abuse Arthritis Varicose veins of both lower extremities Infection Opioid abuse Neuralgia Menorrhagia Ex-cigarette smoker Anxiety Agoraphobia SVT (supraventricular tachycardia) Polysubstance abuse Low back pain Back pain Umbilical hernia Surgical History History of umbilical hernia repair (~08/31/23) Status post excision of lipoma H/O dilation and curettage History of cardiac radiofrequency ablation (RFA) History of bladder surgery Family History Other Mental health disorder Social History Housing: House Alcohol intake: never Patient Tobacco Use Status: Former Tobacco user Tobacco use type: Cigarette e-Cigarette/Vaping Use: Never Used Second Hand Smoke Exposure: Yes service: No Current occupational status: unemployed Cognitive needs: No Hearing needs: No Vision needs: Yes (Glasses) Female Reproductive History Menstrual control method: none Questionnaire PHQ-9 Over the last 2 weeks, how often have you been bothered by any of the following problems? 1. Little interest or pleasure in doing things: not at all 2. Feeling down, depressed, or hopeless: not at all 3. Trouble falling or staying asleep, or sleeping too much: several days 4. Feeling tired or having little energy: several days 5. Poor appetite or overeating: nearly every day 6. Feeling bad about yourself - or that you are a failure or have let yourself or your family down: more than half the days 7. Trouble concentrating on things, such as reading the newspaper or watching television: more than half the days 8. Moving or speaking so slowly that other people could have noticed. Or the opposite - being so fidgety or restless that you have been moving around a lot more than usual: not at all 9. Thoughts that you would be better off or of hurting yourself in some way: not at all Total score: 9 Depression Screening Interpretation: Positive Depression Screening Follow-up: Existing condition and Declines treatment Depression Screening Done: Yes 53919 - PHQ-9 Billing: Yes Source: Developed by Drs. Neri Winter, Tasneem Jackson, Hoang Dillard and colleagues, with an educational katelyn from [employer]. Thrive Questionnaire Date Thrive assessed: 11/18/24 I am a: Patient What is your living situation today?: I have a steady place to live Within the past 12 months, did the food you bought not last and you didn't have the money to get more?: Sometimes True Within the past 12 months, did you worry whether your food would run out before you got money to buy more?: Often true Do you have trouble paying for medicines?: Yes Do you have trouble getting transportation to medical appointments?: Yes Do you have trouble paying your heating and electricity bill?: Yes Do you have trouble taking care of your child, family member or friend?: I choose not to answer this question Do you have trouble with day-to-day activities such as bathing, preparing meals, shopping, managing finances, etc.?: Yes Are you currently unemployed and looking for a job?: No Are you interested in more education?: No Please select the resources that you would like help with: None Currently or been in a relationship where the following occur: No concerns reported THRIVE Score: 4 AUDIT C Alcohol Use Questionnaire (AUDIT-C) 1. How often do you have a drink containing alcohol?: Never Total Score: 0 PEGGY-7 AMB Questionnaire PEGGY-7 Date PEGGY - 7 assessed: 11/18/24 Feeling nervous, anxious, or on edge: 1 = Several days Not being able to stop or control worryin = Several days Worrying too much about different things: 1 = Several days Trouble relaxin = Nearly every day Being so restless that it is hard to sit still: 1 = Several days Becoming easily annoyed or irritable: 1 = Several days Feeling afraid as if something awful might happen: 0 = Not at all Total PEGGY-7 score (0-4 normal; 5-9 mild; 10-14 moderate; 15-21 severe): 8 Source: Developed by Drs. Neri Winter, Tasneem Jackson, Hoang Dillard and colleagues, with an educational katelyn from [employer]. PEGGY-7 Assessment Billing PEGGY-7 Assessment Tool: PEGGY-7 Assessment 24050 Review of Systems Const Denies chills, Denies fever(s), Denies headache(s) and Denies poor appetite Eyes Reports no additional complaints ENT Denies dizziness and Denies headache(s) Card Denies chest pain, Denies syncope, Denies edema, Denies irregular heart rhythm, Denies lightheadedness and Denies dyspnea Resp Denies dyspnea GI Denies abdominal pain, Denies nausea and Denies vomiting Reports no additional complaints Musc Reports as per HPI, Denies abnormal gait and Reports back pain Skin/Breast Reports system reviewed and no additional complaints, except as documented Neuro Denies abnormal gait, Denies dizziness, Denies syncope and Denies headache(s) Psych Reports no additional complaints Physical exam (Primary Care) Vital Signs: Last Vital Signs Temp 97.3 F 11/18/24 14:18 Pulse 91 11/18/24 14:18 BP 150/90 H 11/18/24 14:18 Pulse Ox 96 11/18/24 14:18 Oxygen Delivery Method Room Air 11/18/24 14:18 BMI result Body Mass Index 31.8 Tobacco/Smoking Status: Tobacco use Status Tobacco use date assessed 11/18/24 11/18/24 14:24 Patient Tobacco Use Status Former Tobacco user 11/18/24 14:24 Tobacco use type Cigarette 11/18/24 14:24 e-Cigarette/Vaping Use Never Used 11/18/24 14:24 PHQ-9: PHQ-9 Score PHQ-9: Total score 9 11/18/24 14:58 Depression Screening Interpretation: Positive Depression Screening Follow-up: Existing condition and Declines treatment Thrive Assessment: Date of Thrive Assessment Date Thrive assessed 11/18/24 11/18/24 14:24 Currently or been in a relationship where the following occur: No concerns reported Const General: cooperative, healthy appearing, comfortable and no acute distress Orientation/consciousness: patient oriented x3 HENMT Head: Yes normocephalic Ears: hearing grossly normal bilaterally General nose exam: Normal external nose present Eyes General: appearance normal, both eyes and all related structures Conjunctivae: conjunctivae normal Neck Neck: Yes full ROM and Yes no lymphadenopathy Resp Effort & Inspection: normal respiratory effort Auscultation: clear to auscultation bilaterally, no crackles, no rales, no rhonchi and no wheezes Cardio Rate: regular rate Rhythm: regular rhythm Back/Spine/Pelvis Other: No palpable deformity of lumbar spine. Mild tenderness to palpation over lumbar spine and left paraspinal muscles. No tenderness to palpation over any other part of the back Skin General skin exam: no rashes or lesions noted Neuro General: patient oriented x3 Gait exam (Neuro): Normal gait present Extrem Other: Intact strength, sensation, pulses in bilateral lower extremities. Negative straight leg raise bilaterally General: Yes normal to inspection, Yes full ROM and No edema Psych Affect: normal affect Attitude: cooperative Insight: Good insight present (Psych) Judgement: Good judgement present (Psych) Coding Level of Care Code Est Pt Level 4 (37036) Diagnoses Degeneration of intervertebral disc of lumbar region with discogenic back pain M51.360 Disc-related pain type: discogenic back pain only Lumbar spondylosis M47.816 Chronic prescription opiate use Z79.891 Constipation K59.00 Varicose veins of both lower extremities I83.93 Obesity (BMI 30-39.9) E66.9 Cervical cancer screening Z12.4 Breast cancer screening Z12.39 Depression F32.A Additional Codes PEGGY-7 Assessment Billing - PEGGY-7 Assessment Tool: PEGGY-7 Assessment 07814 ([id number]) PHQ-9 - 29415 - PHQ-9 Billing: Yes ([id number]) Assessment & Plan Assessment & Plan (1) Degenerative disc disease, lumbar: Comment: MRI 2020 showing minimal disc space narrowing and mild annular bulging at L2-3 without stenosis Mild annular bulging at L3-4 without stenosis Questionable small central and inferior disc extrusion at L4-5 without stenosis or focal nerve root compression Code(s): M51.369 - Other intervertebral disc degeneration, lumbar region without mention of lumbar back pain or lower extremity pain Category: Medical Qualifiers: Disc-related pain type: discogenic back pain only Qualified Code(s): M51.360 - Other intervertebral disc degeneration, lumbar region with discogenic back pain only Plan: Plan to obtain x-ray to determine if there has been progression of degenerative disc disease. Patient requesting physical therapy and referral has been placed today. She is also requesting referral to a back specialist and referral was placed to [facility] for pain management and further evaluation. Plan to use Tylenol and ibuprofen as needed for pain along with heating pads and muscle relaxer as needed. Advised patient not to drive on muscle relaxer as it can cause excessive drowsiness. (2) Lumbar spondylosis: Code(s): M47.816 - Spondylosis without myelopathy or radiculopathy, lumbar region Category: Medical Plan: See above (3) Chronic prescription opiate use: Code(s): Z79.891 - FDC (current) use of opiate analgesic Category: Medical Plan: Patient currently on methadone 80 mg and working on tapering the dose down. She currently receives take on bottles for her clinic and goes to do with the methadone clinic once weekly. She feels good in his medication but would like to continue to taper down and eventually off of this medication. (4) Constipation: Code(s): K59.00 - Constipation, unspecified Category: Medical Plan: Patient having an issue with constipation and is scheduled to be seen by Gastroenterology next week. (5) Varicose veins of both lower extremities: Code(s): I83.93 - Asymptomatic varicose veins of bilateral lower extremities Category: Medical Plan: Patient is requesting a referral to vascular surgery for evaluation and treatment of varicose veins. Referral was placed today. Recommend the use of compression stockings, leg elevation and exercise as tolerated. (6) Obesity (BMI 30-39.9): Code(s): E66.9 - Obesity, unspecified Category: Medical Plan: Healthy diet and regular exercise is encouraged. (7) Cervical cancer screening: Code(s): Z12.4 - Encounter for screening for malignant neoplasm of cervix Category: Medical Plan: Referral was placed to gynecology today (8) Breast cancer screening: Code(s): Z12.39 - Encounter for other screening for malignant neoplasm of breast Category: Medical Plan: Order was placed for mammogram (9) Depression: Code(s): F32.A - Depression, unspecified Category: Medical Plan: Positive PHQ-9 today patient is declining counseling or medication management at this time. Plan The patient will be referred to physical therapy to help manage her chronic back pain and improve muscle strength. Additionally, a referral to [facility] will be made for further evaluation and potential treatment options, including possible surgical interventions if deemed necessary. For her varicose veins, a referral to a vascular surgeon will be provided to explore procedural options to prevent worsening of the condition. Given her history of menopausal bleeding, a referral to a product development consultant is recommended for further evaluation and management. A mammogram will be scheduled as part of her routine health maintenance. Blood work will be conducted to assess cholesterol, kidney, liver function, electrolytes, thyroid levels, vitamins, and complete blood count to provide a comprehensive overview of her current health status. This note was constructed using voice recognition software. While every effort has been made to ensure accuracy and commissioning agent, still areas may have been included sometimes these areas may affect the content or meeting of the given symptoms. Total time spent caring for the patient today was 45 minutes. This includes time spent before the visit reviewing the chart, time spent during the visit, and time spent after the visit and documentation. Patient was informed and verbally consented to the use of an ambient scribe for clinic note documentation during this visit. Orders: Orders TSH reflex Free T4 Today E66.9 - Obesity, unspecified, Z00.00 - Encounter for general adult medical examination without abnormal findings Comprehensive Met. Panel Today E66.9 - Obesity, unspecified, Z00.00 - Encounter for general adult medical examination without abnormal findings Lipid Panel Today E66.9 - Obesity, unspecified, Z13.220 - Encounter for screening for lipoid disorders PT Evaluation and Treatment Today M47.816 - Spondylosis without myelopathy or radiculopathy, lumbar region, M51.360 - Other intervertebral disc degeneration, lumbar region with discogenic back pain only XR lumbar spine 2-3V Today M47.816 - Spondylosis without myelopathy or radiculopathy, lumbar region, M51.360 - Other intervertebral disc degeneration, lumbar region with discogenic back pain only MM tomosynthesis screening BI Today Z12.31 - Encounter for screening mammogram for malignant neoplasm of breast Vitamin B12 and Folate Today E66.9 - Obesity, unspecified, Z13.21 - Encounter for screening for nutritional disorder Vitamin D 25-OH Total Today E66.9 - Obesity, unspecified, Z00.00 - Encounter for general adult medical examination without abnormal findings Free T4 (Free Thyroxine) Today E66.9 - Obesity, unspecified, Z00.00 - Encounter for general adult medical examination without abnormal findings Complete Blood Count Auto Diff Today E66.9 - Obesity, unspecified, Z00.00 - Encounter for general adult medical examination without abnormal findings Hemoglobin A1c Today E66.9 - Obesity, unspecified, Z13.1 - Encounter for screening for diabetes mellitus Referrals Vascular Surgery Referral I83.93 - Asymptomatic varicose veins of bilateral lower extremities [employer] Referral Z12.4 - Encounter for screening for malignant neoplasm of cervix Orthopedics Referral M47.816 - Spondylosis without myelopathy or radiculopathy, lumbar region, M51.360 - Other intervertebral disc degeneration, lumbar region with discogenic back pain only Medications: New cyclobenzaprine 5 mg PO TID 90 tabs 0RF
[2024-11-18 14:18] VITALS: BP 150/90; PULSE 91; TEMP 36.3; O2SAT 96; BMI 31.8
== END 2024-11-18 15:14 | disposition home or self-care (01) ==
LOC: HO.HMCH 14:13
DX: M51.360 Other intervertebral disc degeneration, lumbar region with discogenic back pain only (principal); M47.816 Spondylosis without myelopathy or radiculopathy, lumbar region; E66.9 Obesity, unspecified; Z68.31 Body mass index [BMI] 31.0-31.9, adult; Z79.891 Long term (current) use of opiate analgesic; K59.00 Constipation, unspecified; I83.93 Asymptomatic varicose veins of bilateral lower extremities; Z12.39 Encounter for other screening for malignant neoplasm of breast; F32.A Depression, unspecified

== ENCOUNTER → 2024-11-18 14:12 | Outpatient (BNVA) | payer OTHER, SELFPAY | DX: M51.360 Other intervertebral disc degeneration, lumbar region with discogenic back pain only (principal); M47.816 Spondylosis without myelopathy or radiculopathy, lumbar region; K59.00 Constipation, unspecified; I83.93 Asymptomatic varicose veins of bilateral lower extremities; E66.9 Obesity, unspecified; K42.9 Umbilical hernia without obstruction or gangrene; F32.A Depression, unspecified; Z68.31 Body mass index [BMI] 31.0-31.9, adult | CPT/HCPCS: 96127; 99212 ==

== ENCOUNTER 2024-11-23 10:35 | Outpatient (AMB) | payer OTHER, SELFPAY ==
--- NOTE | 2024-11-23 10:45 | A.OFFVIS_ITS ---
Vital Signs 11/23/24 10:50 Height 5 ft 7 in Weight 203 lb BMI 31.8 BP 140/80 H Blood Pressure Location Rt brachial Position Sitting Pulse 66 Pulse Source Pulse Oximeter Pulse Oximetry (%) 95 Oxygen Delivery Method Room Air Intake Visit Reasons: [place] screening/Hemorrhoids Intake Note: New patient for initial colo screening and hemorrhoid eval. CC; C.O. anal fissures (eval'd and diagnosed by Dr. Pettit), BRB per rectum, rectal pain, constipation and GERD. Pt states that she has noticed the onset of GERD recently which is worst when bending over with their head down. Pt has never attempted tx to this point. 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 female here today for pre colonoscopy screening.? Patient was sent to us by Dr. Pettit.? This is her first colonoscopy screening.? Patient denies any gastrointestinal symptoms in the past or at present.? Although patient reports that recently she has been having occasional epigastric pain specially when bending. Patient also reports reflux when this happens. Patient reports constipation. Diagnosed with fissures by general surgeon. Currently patient is eating raisin bran for breakfast and reports to be doing better. Denies any personal or family history of gastrointestinal disease, colon polyps, or CRC.? Denies history of difficulty with sedation or anesthesia in the past.? Negative for history of sleep apnea.? Denies any history of cardiac, renal, pulmonary, or hepatic disease.?? No history of infectious? diseases like hepatitis A, B, C, HIV or tuberculosis.? Patient is not on any anticoagulation [facility] Medical History Substance abuse Arthritis Varicose veins of both lower extremities Infection Opioid abuse Neuralgia Menorrhagia Ex-cigarette smoker Anxiety Agoraphobia SVT (supraventricular tachycardia) Polysubstance abuse Low back pain Back pain Umbilical hernia Surgical History History of umbilical hernia repair (~08/31/23) Status post excision of lipoma H/O dilation and curettage History of cardiac radiofrequency ablation (RFA) History of bladder surgery Family History Other Mental health disorder Social History Housing: House Alcohol intake: never Patient Tobacco Use Status: Former Tobacco user Tobacco use type: Cigarette e-Cigarette/Vaping Use: Never Used Second Hand Smoke Exposure: Yes service: No Current occupational status: unemployed Cognitive needs: No Hearing needs: No Vision needs: Yes (Glasses) Review of Systems Const Denies weight gain and Denies weight loss ENT Reports no additional complaints, Denies dysphagia and Denies odynophagia Card Reports no additional complaints Resp Reports no additional complaints GI Denies abdominal pain, Denies belching, Denies melena, Denies bloating, Denies change in bowel habits, Reports constipation, Denies dysphagia, Denies excessive flatus, Denies dyspepsia, Reports heartburn (Occasional), Denies diarrhea, Denies loose stools, Denies nausea, Denies odynophagia and Denies vomiting Reports no additional complaints Musc Reports no additional complaints Neuro Reports no additional complaints Psych Reports no additional complaints Endo Reports no additional complaints Physical Exam Vital Signs: Last Vital Signs Pulse 66 11/23/24 10:50 BP 140/80 H 11/23/24 10:50 Pulse Ox 95 11/23/24 10:50 Oxygen Delivery Method Room Air 11/23/24 10:50 BMI result Body Mass Index 31.8 Const General: healthy appearing, no acute distress and well developed Nutritional Appearance: well nourished and obese Orientation/consciousness: patient oriented x3 Resp Effort & Inspection: normal respiratory effort, able to speak in complete sentences, no tracheal deviation and symmetric chest movement Auscultation: clear to auscultation bilaterally Cardio Rate: regular rate GI Inspection: Yes normal to inspection, No distended and Yes obesity Palpation (GI): Soft to palpation, not firm, nontender and No hepatosplenomegaly present Auscultation: normal bowel sounds General: Yes no CVA tenderness Back/Spine/Pelvis Back: no CVA tenderness Skin General skin exam: elasticity normal, turgor normal and dry skin Neuro General: patient oriented x3 Psych Appearance: grossly normal Mental Status: mental status grossly normal Assessment & Plan Assessment & Plan (1) Constipation: Code(s): K59.00 - Constipation, unspecified Category: Medical Qualifiers: Constipation type: slow transit constipation Qualified Code(s): K59.01 - Slow transit constipation (2) Screen for colon cancer: Code(s): Z12.11 - Encounter for screening for malignant neoplasm of colon Plan Patient denies any cardiac or respiratory symptoms.? Patient reports constipation. Will start her on Dulcolax daily. Increase fluid intake and activity to promote better bowel motility. Patient reports acid reflux and epigastric pain specially when bending over. If she will continue to have this pain and acid reflux despite moving her bowels better she will call our office and will start her on PPI. Patient will avoid dietary triggers and late night snacking. Staying upright for minimum 3 hours after meals discussed with patient. Patient will be sent for upper endoscopy. Seen Dr. Pettit for rectal bleed. Diagnosed with fissures. First-time colonoscopy. Denies any issues with anesthesia in the past.? Denies any history of sleep apnea.? No history infectious diseases in the past or present.? Not on any anticoagulation therapy.? No family or personal history of colon cancer or polyps.? Patient denies melena, hematochezia, unintentional weight loss or ribbon like stools.? ? Patient will return in 2-3 months to re-evaluate and go over the prep again. She is agreeable to this plan and verbalizes understanding of instructions. She was given the opportunity to ask questions and all questions answered. Thank you for allowing me to participate in her care Medications: New bisacodyl (Dulcolax (bisacodyl)) 10 mg (2 x 5 mg) PO BEDTIME 180 tabs 4RF polyethylene glycol 3350 (Miralax) As directed by gastroenterology department at [facility] 238 grams PO ONCE 238 grams 0RF Z12.11 - Encounter for screening for malignant neoplasm of colon Coding Level of Care Code New Pt Level 3 (35059) Diagnoses Slow transit constipation K59.01 Constipation type: slow transit constipation Screen for colon cancer Z12.11 Time Spent (min) 40 Comment 30 minutes spent with patient and additional 10 minutes spent reviewing her records
[2024-11-23 10:50] VITALS: BP 140/80; PULSE 66; O2SAT 95; BMI 31.8
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
== END 2024-11-23 11:24 | disposition home or self-care (01) ==
LOC: HO.HGI 10:36
PROVIDERS: Visit Provider Nurse Practitioner Family
DX: Z01.818 Encounter for other preprocedural examination (principal); Z12.11 Encounter for screening for malignant neoplasm of colon; K21.9 Gastro-esophageal reflux disease without esophagitis; K59.01 Slow transit constipation
CPT/HCPCS: 99203

== ENCOUNTER → 2024-11-23 10:35 | Outpatient (BNVA) | payer OTHER, SELFPAY | PROVIDERS: Visit Provider Nurse Practitioner Family | DX: Z12.11 Encounter for screening for malignant neoplasm of colon (principal); K59.01 Slow transit constipation | CPT/HCPCS: 99202 ==

== ENCOUNTER 2024-12-20 13:34 | Outpatient (AMB) | payer OTHER, SELFPAY ==
--- NOTE | 2024-12-20 13:35 | MHC.OFFVIS ---
Vital Signs 12/20/24 13:36 Height 5 ft 7 in Weight 203 lb BMI 31.8 Intake Visit Reasons: RECRUITER SPECIALIST/PCP referral for BLE VV Intake Note: RECRUITER SPECIALIST for bilateral LE VV, states bilateral LE pain, swelling, itching and burning. STates she was seen at [facility] in 2012 and didn't move forward with procedures at the time Guard Sergeant Required: No Accompanied by: Self / Same As Patient Allergies No Known Allergies Allergy (Verified 12/20/24 13:40) HPI HPI RECRUITER SPECIALIST/PCP referral for BLE VV: Details: Pleasant 54 year old patient presents for painful varicose veins. Complaints include pain over varicosities, swelling of lower extremities, cramping, fatigue, and heaviness of the lower extremities. It has been affecting there daily activities including walking. It is noted more so in left leg. In addition she does have back pain issues. Patient denies any previous venous surgery or injections. - she did have a workup at [facility] in 2012 where she was positive for reflux but had no treatment at that time Patient denies any history of DVT/ PE. Patient denies any history of phlebitis. Trial of compression includes - [id number] They now present for vascular evaluation regarding their varicose veins. [facility] Medical History Substance abuse Arthritis Varicose veins of both lower extremities Infection Opioid abuse Neuralgia Menorrhagia Ex-cigarette smoker Anxiety Agoraphobia SVT (supraventricular tachycardia) Polysubstance abuse Low back pain Back pain Umbilical hernia Surgical History History of umbilical hernia repair (~08/31/23) Status post excision of lipoma H/O dilation and curettage History of cardiac radiofrequency ablation (RFA) History of bladder surgery Family History Other Mental health disorder Social History Housing: House Alcohol intake: never Patient Tobacco Use Status: Former Tobacco user Tobacco use type: Cigarette e-Cigarette/Vaping Use: Never Used Second Hand Smoke Exposure: Yes service: No Current occupational status: unemployed Cognitive needs: No Hearing needs: No Vision needs: Yes (Glasses) Review of Systems Const Reports as per HPI ENT Reports no additional complaints Card Denies chest pain, Denies chest pain at rest and Denies chest pain with activity Resp Denies chest congestion and Denies cough GI Reports no additional complaints Musc Details: pain over varicosities, aching of lower extremities, swelling, cramping, heaviness and tiredness, itching Denies abnormal gait Skin/Breast Reports pruritus and Denies wounds Neuro Reports no additional complaints and Denies abnormal gait Psych Denies no additional complaints Physical Exam Vital Signs: BMI result Body Mass Index 31.8 Const General: cooperative, healthy appearing and comfortable Orientation/consciousness: oriented to person, oriented to place and oriented to time Neck Carotids: no bruits Chest Chest palpation & inspection: normal inspection of the chest and normal palpation of entire chest wall Resp Effort & Inspection: normal respiratory effort and able to speak in complete sentences Cardio Rate: regular rate Heart sounds: S1 normal heart sound present and S2 normal heart sound present Peripheral pulses: Peripheral pulses 2+ throughout GI Inspection: Yes normal to inspection Skin Other: +2 edema, large rope-like varicosities greater than 4 mm CEAP Classification C4 - skin color changes Ep - Etiology Primary As - superficial veins P - reflux General skin exam: dry skin Neuro General: oriented to person, oriented to place and oriented to time Extrem Right lower extremity: full ROM, normal capillary refill and edema Left lower extremity: full ROM, normal capillary refill and edema Psych Mental Status: mental status grossly normal Assessment & Plan Assessment & Plan (1) Varicose veins of left lower extremity with inflammation: Code(s): I83.12 - Varicose veins of left lower extremity with inflammation Category: Medical Plan: In short, the patient has evidence of venous insufficiency. I have discussed the pathophysiology with the patient. In addition I have provided informational material regarding venous disease to the patient. We have discussed conservative measures including compression, elevation, and exercise. I have also provided a handout regarding appropriate use of compression stockings and where to purchase good compression stockings as well. I have taken the liberty of ordering venous insufficiency testing with the patient. They will follow up with me after testing. The patient had an opportunity to ask questions regarding the treatment plan. All questions were answered. Imaging studies, laboratory studies and physical exam results were discussed and reviewed in detail. No major barriers to understanding were identified. The patient expressed understanding and agreement with the above treatment plan. The patient is aware they should contact our office by phone for worsening of the current condition or the appearance of new symptoms. Thank you for allowing me to participate in the vascular care of this patient. If you have any questions or concerns regarding the treatment for the above condition please do not hesitate to contact me. The office telephone contact is [phone]. This note is constructed using voice recognition software. While every effort has been made to ensure accuracy, staff technologist errors may have been included. Thank you for allowing me to participate in the care of your patient. Yours sincerely, Antonio Aldridge MD, FACS, R.P.V.I. Orders: Orders US venous duplex LE BI Today I83.12 - Varicose veins of left lower extremity with inflammation Coding Level of Care Code Est Pt Level 4 (25142) Diagnoses Varicose veins of left lower extremity with inflammation I83.12
[2024-12-20 13:36] VITALS: BMI 31.8
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
== END 2024-12-20 13:58 | disposition home or self-care (01) ==
LOC: HO.HVS 13:35
PROVIDERS: Visit Provider Surgery Vascular Surgery
DX: I83.12 Varicose veins of left lower extremity with inflammation (principal)
CPT/HCPCS: 99214

== ENCOUNTER 2024-12-20 13:34 | Outpatient (REF) | payer OTHER, SELFPAY ==
--- NOTE | ~2024-12-20 | XR_ITS ---
EXAMINATION: XR LUMBAR SPINE 2-3 VIEWS HISTORY: M51.360 - Other intervertebral disc degeneration, lumbar region with... COMPARISON: Comparison is made with the prior examination dated 08/22/2022. FINDINGS: AP, lateral, and coned down views of the lumbar spine are submitted. Osseous mineralization is normal. Five nonrib-bearing lumbar vertebral bodies are identified, maintaining normal height and alignment without evidence of fracture or spondylolisthesis. There is moderate degenerative disc disease at L2-3 with disc space narrowing and osteophyte formation. Milder changes are noted at the remaining levels. There is osteoarthritis of the lower lumbar facet joints. There is a large amount of stool in the colon. XR/XR lumbar spine 2-3V IMPRESSION: Degenerative disc disease as described. Electronically signed by: Neri Carolina MD 12/20/2024 02:42 PM EDT
[2024-12-20 14:26] LABS: MANUAL DIFF FLAG NO
[2024-12-20 14:54] LABS: Hemoglobin A1C 153.4816 umol/L; Total Hemoglobin (HGBA1C) 3461.0165 umol/L
[2024-12-20 15:00] LABS: Hematocrit 39.9 % (37.0-47.0); Hemoglobin 13.1 g/dl (12.0-16.0); Imm Gran Abs Auto 0.03 X10*3/uL (0.00-0.03); Imm Gran Pct Auto 0.4 % (0.0-0.4); Lymphocytes Absolute Auto 2.1 X10*3/uL (1.2-4.9); Mean Corpuscular HGB Conc 32.8 g/dl (31.0-35.0); Mean Corpuscular Hemoglobin 28.0 pg (27.0-33.0); Mean Corpuscular Volume 85.3 fL (80.0-98.0); NRBC Abs Auto 0.000 X10*3/uL (0.0-0.012); NRBC Pct Auto 0.0 /100WBC (0.0-0.2); Platelet Count 315 X10*3/uL (160-400); Red Blood Count 4.68 X10*6/uL (4.20-5.50); White Blood Count 7.8 X10*3/uL (4.8-10.8)
[2024-12-20 15:20] LABS: Alanine Aminotransferase 29 U/L (0-31); Albumin Level 4.3 g/dL (3.5-5.0); Alkaline Phosphatase 90 U/L (39-117); Anion Gap 12 (12-20); Aspartate Amino Transferase 30 U/L (5-31); Blood Urea Nitrogen 16 mg/dL (9-16); Calcium 9.6 mg/dL (8.4-10.2); Carbon Dioxide 30 mmol/L (22-29); Chloride 105 mmol/L (96-108); Cholesterol 169 mg/dL (<200); Estimated Glomerular Filt Rate > 60; HDL Cholesterol 46 mg/dL (>40); Potassium 4.5 mmol/L (3.3-5.1); Sodium 142 mmol/L (135-145); Total Protein 8.4 g/dL (6.5-8.0); Triglycerides 132 mg/dL (<150)
[2024-12-20 15:30] LABS: Free T4 (Free Thyroxine) 1.03 ng/dL (0.71-1.85)
[2024-12-20 15:46] LABS: Folate 12.1 ng/mL (> or = 4.0); Vitamin B12 1082 pg/mL (200-900)
== END 2024-12-20 13:35 | disposition home or self-care (01) ==
LOC: HO.LAB 13:34
PROVIDERS: Visit Provider Surgery Vascular Surgery
DX: Z00.00 Encounter for general adult medical examination without abnormal findings (principal); E66.9 Obesity, unspecified; Z13.21 Encounter for screening for nutritional disorder; Z13.220 Encounter for screening for lipoid disorders; Z13.1 Encounter for screening for diabetes mellitus; M51.360 Other intervertebral disc degeneration, lumbar region with discogenic back pain only; M47.816 Spondylosis without myelopathy or radiculopathy, lumbar region; I83.12 Varicose veins of left lower extremity with inflammation
CPT/HCPCS: 36415; 72100; 80053; 80061; 82306; 82607; 82746; 83036; 84439; 84443; 85025; 99212

== ENCOUNTER → 2024-12-20 14:28 | Outpatient (BNV) | payer OTHER, SELFPAY | PROVIDERS: Visit Provider Radiology Diagnostic Radiology | DX: M51.369 Other intervertebral disc degeneration, lumbar region without mention of lumbar back pain or lower extremity pain (principal) | CPT/HCPCS: 72100 ==

== ENCOUNTER 2025-01-05 13:01 | Outpatient (AMB) | payer OTHER, SELFPAY ==
--- NOTE | 2025-01-05 13:05 | A.OFFVIS_ITS ---
Vital Signs 01/05/25 13:09 Height 5 ft 7 in Weight 197 lb 6 oz BMI 30.9 BP 189/98 H Blood Pressure Location Rt brachial Position Sitting Pulse 98 Pulse Source Pulse Oximeter Pulse Oximetry (%) 97 Oxygen Delivery Method Room Air Oxygen Flow Rate 98 Intake Visit Reasons: Low back pain, unspecified Intake Note: Pain today 10/08 Chief Librarian Extension Department Required: No Accompanied by: Self / Same As Patient Allergies No Known Allergies Allergy (Verified 01/05/25 13:12) HPI Comments Details: The patient is a 54-year-old female presenting with chronic low back pain. The pain began in 2015 and has been persistent since then. She has undergone imaging studies, including lumbar xray which revealed degenerative arthritis and bone spur formation in the lower spine. The patient has a history of osteomyelitis in the lower back, which was treated with [facility] hospitalization and antibiotics via PICC line in hospital and then home approximately four to five years ago. She reports no fever during that episode, and the condition was confirmed through imaging at [facility]. These reports are not available for review today. The patient has a history of substance abuse and has been on methadone since 2009. She reports a brief period (3 months) of intravenous drug use prior to starting methadone therapy. Her methadone is managed by a clinic in [place]. Patient used to follow Dr. Brannon in the past for pain management and received multiple injections with mixed results. The patient also reports history of hip bursitis, which contributes to her pain symptoms. She experiences pain radiating to the hip and knee, with associated numbness and tingling. - Onset: Pain began in 2015 - Quality: Described as tightness, burning, shooting, heavy, aching, dull, deep, sore, aching, and throbbing - Location: Mid and lower back, radiating to right hip and groin, buttocks and knee - Exacerbating factors: Movement, standing on toes, bending, walking, changing positions - Relieving factors: Ibuprofen provides some relief, methadone, rest, heat - Interference: Pain affects daily activities and causes fatigue - Affect: Pain causes fatigue and impacts daily activities - Analgesia: Currently on methadone 80 mg daily, cyclobenzaprine, baclofen, and ibuprofen for pain relief - Adverse Effects: No specific adverse effects reported - Activities of Daily Living: Pain interferes with daily activities and causes fatigue - Aberrant Drug Related Behaviors: History of substance abuse, currently managed with methadone Oswestry Low Back Pain Disability Score=32 [facility] Medical History Substance abuse Arthritis Varicose veins of both lower extremities Infection Opioid abuse Neuralgia Menorrhagia Ex-cigarette smoker Anxiety Agoraphobia SVT (supraventricular tachycardia) Polysubstance abuse Low back pain Back pain Umbilical hernia Surgical History History of umbilical hernia repair (~08/31/23) Status post excision of lipoma H/O dilation and curettage History of cardiac radiofrequency ablation (RFA) History of bladder surgery Family History Other Mental health disorder Social History Housing: House Alcohol intake: never Patient Tobacco Use Status: Former Tobacco user Tobacco use type: Cigarette e-Cigarette/Vaping Use: Never Used Second Hand Smoke Exposure: Yes service: No Current occupational status: unemployed Cognitive needs: No Hearing needs: No Vision needs: Yes (Glasses) Review of Systems Const Details: - Musculoskeletal: Reports chronic low back pain, hip bursitis, and pain radiating to the knee - Neurological: Reports numbness and tingling in the lower extremities - General: Denies fever, chills, unintentional weight loss, cough, rash, infection - Psychiatric: Reports history of substance abuse, currently on methadone All systems reviewed & are unremarkable except as noted in HPI and below Physical Exam Vital Signs: Last Vital Signs Pulse 98 01/05/25 13:09 BP 189/98 H 01/05/25 13:09 Pulse Ox 97 01/05/25 13:09 Oxygen Delivery Method Room Air 01/05/25 13:09 Oxygen Flow Rate 98 01/05/25 13:09 BMI result Body Mass Index 30.9 General: Appears afebrile. Alert and oriented. Mood and affect appropriate. Follows and participates in conversation appropriately. Respiratory effort is unlabored. No cough. Able to transition from sit to stand unassisted. Ambulates with bilaterally normal heel strike and toe off. General: Yes no CVA tenderness Back/Spine/Pelvis Other: Limited lumbar ROM due to pain. Demonstrates 5/5 strength of quadriceps bilaterally as well as flexion/dorsiflexion of bilateral feet against resistance. 2+ pedal pulses bilaterally. Straight leg rise with dorsiflexion negative bilaterally. +2 patellar and achilles reflexes bilaterally. Facet loading test positive bilaterally. Lulu sign, Alon?s, Pelvic compression and Stinchfield tests are positive bilaterally, left>right. Mild to moderate right groin pain with I/E right hip rotations. Significant midline tenderness lower thoracic and mid to lower lumbar. Valsalva maneuver negative. Back: no CVA tenderness Cervical Spine: cervical ROM normal, cervical muscular tenderness and No Cervical spine tenderness Thoracic/Lumbar Spine: thoracic and lumbar spine normal to inspection, Lasegue's sign negative, straight leg raise negative bilaterally, pain with thoraco-lumbar ROM, paraspinal muscle tenderness, thoraco-lumbar ROM limited, thoracic spinal tenderness and lumbar spinal tenderness Sacroiliac joints: bilaterally tender to palpation Results Reviewed Results Reviewed: XR LUMBAR SPINE 2-3 VIEWS 12/20/24 HISTORY: M51.360 - Other intervertebral disc degeneration, lumbar region with... COMPARISON: Comparison is made with the prior examination dated 08/22/2022. FINDINGS: AP, lateral, and coned down views of the lumbar spine are submitted. Osseous mineralization is normal. Five nonrib-bearing lumbar vertebral bodies are identified, maintaining normal height and alignment without evidence of fracture or spondylolisthesis. There is moderate degenerative disc disease at L2-3 with disc space narrowing and osteophyte formation. Milder changes are noted at the remaining levels. There is osteoarthritis of the lower lumbar facet joints. There is a large amount of stool in the colon. IMPRESSION: Degenerative disc disease as described. Assessment & Plan Assessment & Plan (1) Lumbar spondylosis: Code(s): M47.816 - Spondylosis without myelopathy or radiculopathy, lumbar region Category: Medical (2) Degenerative disc disease, lumbar: Comment: MRI 2020 showing minimal disc space narrowing and mild annular bulging at L2-3 without stenosis Mild annular bulging at L3-4 without stenosis Questionable small central and inferior disc extrusion at L4-5 without stenosis or focal nerve root compression Code(s): M51.369 - Other intervertebral disc degeneration, lumbar region without mention of lumbar back pain or lower extremity pain Category: Social Hx Qualifiers: Disc-related pain type: discogenic back pain only Qualified Code(s): M51.360 - Other intervertebral disc degeneration, lumbar region with discogenic back pain only (3) Low back pain: Code(s): M54.50 - Low back pain, unspecified Category: Medical (4) Discogenic low back pain: Code(s): M51.360 - Other intervertebral disc degeneration, lumbar region with discogenic back pain only Category: Medical (5) History of osteomyelitis: Code(s): Z87.39 - Personal history of other diseases of the musculoskeletal system and connective tissue Category: Medical (6) Midline thoracic back pain: Code(s): M54.6 - Pain in thoracic spine Category: Medical (7) History of osteomyelitis: Code(s): Z87.39 - Personal history of other diseases of the musculoskeletal system and connective tissue Category: Medical (8) Right hip pain: Code(s): M25.551 - Pain in right hip Category: Medical (9) Sacroiliac joint pain: Code(s): M53.3 - Sacrococcygeal disorders, not elsewhere classified Category: Medical Plan The plan includes obtaining thoracic and lumbar MRI to further evaluate the chronic low back pain and assess for any progression of degenerative changes or other underlying conditions. Physical therapy is recommended to improve mobility and manage pain, with a re ferral already in place for PT at [facility] by another provider. Continue current medications, including methadone, cyclobenzaprine, and baclofen, and to use ibuprofen as needed for additional pain relief. Daily physical activity as tolerated, adequate hydration, good posture, and weight optimizations were encouraged. An x-ray of the hip is ordered to evaluate the reported bursitis and associated pain. The patient is interested to discuss the potential use of medical marijuana, this has been deferred for discussion with her methadone provider to ensure safety and compatibility with her current treatment regimen. All questions and concerns have been answered and patient agreed with the plan. Follow up for MRI/xray results and sooner as needed. Patient was informed and verbally consented to the use of an ambient scribe for clinic note documentation during this visit. Orders: Orders MR lumbar spine wo con 01/05/25 M47.816 - Spondylosis without myelopathy or radiculopathy, lumbar region, M51.360 - Other intervertebral disc degeneration, lumbar region with discogenic back pain only, M54.50 - Low back pain, unspecified, Z87.39 - Personal history of other diseases of the musculoskeletal system and connective tissue XR sacroiliac joint min 3V 01/05/25 M53.3 - Sacrococcygeal disorders, not elsewhere classified MR thoracic spine wo con 01/05/25 M51.360 - Other intervertebral disc degeneration, lumbar region with discogenic back pain only, M54.6 - Pain in thoracic spine, Z87.39 - Personal history of other diseases of the musculoskeletal system and connective tissue XR hip RT min 2V 01/05/25 M25.551 - Pain in right hip, M53.3 - Sacrococcygeal disorders, not elsewhere classified Coding Level of Care Code New Pt Level 4 (43714) Diagnoses Lumbar spondylosis M47.816 Degeneration of intervertebral disc of lumbar region with discogenic back pain M51.360 Disc-related pain type: discogenic back pain only Low back pain M54.50 Discogenic low back pain M51.360 History of osteomyelitis Z87.39 Midline thoracic back pain M54.6 Right hip pain M25.551 Sacroiliac joint pain M53.3
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
[2025-01-05 13:09] VITALS: BP 189/98; PULSE 98; O2SAT 97; BMI 30.9
== END 2025-01-05 13:47 | disposition home or self-care (01) ==
LOC: HO.PMC 13:01
PROVIDERS: Visit Provider Nurse Practitioner Family
DX: M47.816 Spondylosis without myelopathy or radiculopathy, lumbar region (principal); M51.360 Other intervertebral disc degeneration, lumbar region with discogenic back pain only; Z87.39 Personal history of other diseases of the musculoskeletal system and connective tissue; M54.6 Pain in thoracic spine; M25.551 Pain in right hip; M53.3 Sacrococcygeal disorders, not elsewhere classified
CPT/HCPCS: 99204

== ENCOUNTER 2025-01-05 13:01 | Outpatient (REF) | payer OTHER, SELFPAY ==
--- NOTE | ~2025-01-05 | XR_ITS ---
EXAMINATION: XR HIP, RIGHT CLINICAL INFORMATION: M25.551 - Pain in right hip COMPARISON: None available. TECHNIQUE: AP and oblique views of the right hip. FINDINGS: No acute cortical disruption or malalignment. No lytic or blastic lesion. Mild asymmetric joint space narrowing involving the inferior coxofemoral joint. Degenerative changes in the symphysis pubis. XR/XR hip RT min 2V IMPRESSION: Mild osteoarthrosis, right hip. Degenerative changes, symphysis pubis. Electronically signed by: Tj Barrera MD 01/05/2025 02:26 PM EDT
--- NOTE | ~2025-01-05 | XR_ITS ---
EXAMINATION: XR SACROILIAC JOINTS CLINICAL INFORMATION: M53.3 - Sacrococcygeal disorders, not elsewhere classified COMPARISON: None available. TECHNIQUE: AP and oblique views of the sacroiliac joints FINDINGS: No acute cortical disruption. Mild sclerosis inferior sacroiliac joints. No lytic or blastic disease. No metallic or radiopaque foreign body. Degenerative changes in the symphysis pubis. XR/XR sacroiliac joint min 3V IMPRESSION: No acute fracture. Mild degenerative changes. Electronically signed by: Tj Barrera MD 01/05/2025 02:25 PM EDT
== END 2025-01-05 13:02 | disposition home or self-care (01) ==
LOC: HO.XRAY 13:01
PROVIDERS: Visit Provider Nurse Practitioner Family
DX: M47.816 Spondylosis without myelopathy or radiculopathy, lumbar region (principal); M51.360 Other intervertebral disc degeneration, lumbar region with discogenic back pain only; M25.551 Pain in right hip; M53.3 Sacrococcygeal disorders, not elsewhere classified; R20.0 Anesthesia of skin; R20.2 Paresthesia of skin; Z87.39 Personal history of other diseases of the musculoskeletal system and connective tissue; Z87.891 Personal history of nicotine dependence; Z79.1 Long term (current) use of non-steroidal anti-inflammatories (NSAID); Z79.899 Other long term (current) drug therapy
CPT/HCPCS: 72202; 73502; 99202

== ENCOUNTER → 2025-01-05 13:47 | Outpatient (BNV) | payer OTHER, SELFPAY | PROVIDERS: Visit Provider Radiology Diagnostic Radiology | DX: M46.1 Sacroiliitis, not elsewhere classified (principal); M16.11 Unilateral primary osteoarthritis, right hip | CPT/HCPCS: 72202; 73502 ==

== ENCOUNTER 2025-01-24 07:32 | Outpatient (REF) | payer OTHER, SELFPAY ==
--- NOTE | ~2025-01-24 | MM_ITS ---
EXAMINATION: MM SCREENING DIGITAL BREAST TOMOSYNTHESIS, BILATERAL CLINICAL INFORMATION: Screening. Asymptomatic. COMPARISON: None. This is a baseline study. TECHNIQUE: Digital breast tomosynthesis is performed in both the craniocaudal and mediolateral oblique views along with computer-aided detection (CAD). FINDINGS: BREAST COMPOSITION: The breasts are heterogeneously dense, which may obscure small masses (ACR BI-RADS breast composition Category c). BILATERAL BREASTS: No significant masses, suspicious calcifications or other abnormalities are seen in either breast. MM/MM tomosynthesis screening BI IMPRESSION: BILATERAL BREASTS: Negative, no mammographic evidence of malignancy. Normal interval follow-up is recommended in 12 months. ASSESSMENT: BI-RADS 1 - Negative RECOMMENDATION: Routine annual mammography screening. FOLLOW-UP: 1 year F/U This examination should not preclude the clinical evaluation of a suspicious palpable abnormality. This patient's information was entered into a reminder system with a target due date for their next mammogram. Electronically signed by: Edwin Gaines MD 01/27/2025 07:31 PM EDT
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
== END 2025-01-24 07:33 | disposition home or self-care (01) ==
LOC: HO.MAMMO 07:32
DX: Z12.31 Encounter for screening mammogram for malignant neoplasm of breast (principal)
CPT/HCPCS: 77063; 77067

== ENCOUNTER → 2025-01-24 07:45 | Outpatient (BNV) | payer OTHER, SELFPAY | PROVIDERS: Visit Provider Radiology Body Imaging | DX: Z12.31 Encounter for screening mammogram for malignant neoplasm of breast (principal) | CPT/HCPCS: 77063; 77067 ==

== ENCOUNTER 2025-02-23 12:52 | Outpatient (REF) | payer OTHER, SELFPAY ==
--- NOTE | ~2025-02-23 | MR_ITS ---
EXAM: MRI lumbar spine without and with IV contrast TECHNIQUE: Multiplanar multisequence imaging was performed through the lumbar spine without and with IV contrast. INDICATION: Low back pain, history of osteoarthritis, back sensitivity CONTRAST: 10 mL Gadavist PRIOR: X-ray December 20, 2024 FINDINGS: 5 non-rib bearing lumbar segments are present on x-ray. There are no marrow replacing lesions. Paraspinal soft tissues and major vascular structures are unremarkable. The termination of conus medullaris is within normal limits at the level of L1. Without Contrast: T12-L1: There is no disc bulge, herniation, spinal stenosis, or foraminal narrowing. L1-L2: There is mild circumferential broad-based disc bulge without spinal stenosis or foraminal narrowing. There is ligamentum flavum thickening and mild facet degeneration. L2-L3: There is subtle retrolisthesis. There is minimal Modic 2 change. There is circumferential broad-based disc bulge with small focal right central articular zone extrusion. There is mild ligament flavum thickening and trace fluid in the facet joints. There is moderate left and [id number] right subarticular zone narrowing. There is no significant foraminal narrowing or spinal stenosis. L3-L4: There is moderate loss of disc height with circumferential broad-based disc bulge and central annular fissuring. There is ligament flavum thickening and mild facet degeneration and trace fluid in the facet joints. There is mild spinal stenosis with mild bilateral subarticular zone narrowing, greater on the left. There is minimal foraminal narrowing. L4-L5: There is mild loss disc height and circumferential broad-based disc bulge with mild ligamentum flavum thickening not resulting in spinal stenosis. There is minimal narrowing of the subarticular zones and minimal bilateral foraminal narrowing. L5-S1: There is mild loss disc height and circumferential broad-based disc bulge with right subarticular zone annular fissuring and a central and right subarticular zone small extrusion indenting the thecal sac and mildly narrowing the right subarticular zone. There is mild ligament flavum thickening and moderate facet arthropathy. With contrast, there is no pathological enhancement. MR/MR lumbar spine wo/w con IMPRESSION: No acute abnormality. L2-L3: There is moderate left and iaux-sr-ondzqoxu right subarticular zone narrowing. L3-L4: There is mild spinal stenosis with mild bilateral subarticular zone narrowing, greater on the left. Electronically signed by: Jonathan Telles MD 02/23/2025 02:27 PM EDT RP
--- NOTE | ~2025-02-23 | MR_ITS ---
EXAMINATION: MR THORACIC SPINE WITHOUT AND WITH CONTRAST CLINICAL INFORMATION: Thoracic spine pain COMPARISON: None available. TECHNIQUE: MRI of the thoracic spine was obtained using routine sequences with and without contrast. Intravenous contrast: Gadavist 10 mL. FINDINGS: Marrow and end-plates: There are no marrow replacing lesions. Alignment: Vertebral body height and alignment is preserved. Soft tissues: Paraspinal soft tissues and major vascular structures are unremarkable. Cord: There is no abnormal cord signal. There is no hydrosyringomyelia. The termination of conus medullaris is within normal limits at the level of L1. T3-4: Ligamentum flavum thickening on the right results in mild to moderate spinal stenosis. T8/9: Circumferential broad-based disc bulge indents the thecal sac without causing spinal stenosis. T9-10: Circumferential broad-based disc bulge and ligamentum flavum thickening in the thecal sac resulting in mild to moderate spinal stenosis. Ligamentum flavum indents the posterior cord on the right side. T11-12: Ligamentum flavum thickening is greater on the right where it indents the thecal sac and mildly narrows the spinal canal. Thoracic disc levels not specifically described demonstrated no disc bulge, herniation, spinal stenosis, or foraminal narrowing. After contrast, there is physiologic enhancement. No pathologic enhancement is evident. MR/MR thoracic spine wo/w con IMPRESSION: No acute abnormality. T3-4: There is mild to moderate spinal stenosis. T9-10: There is mild to moderate spinal stenosis. Ligamentum flavum indents the posterior cord on the right side. T11-12: There is mild spinal stenosis. Electronically signed by: Jonathan Telles MD 02/23/2025 02:38 PM EDT
== END 2025-02-23 12:53 | disposition home or self-care (01) ==
LOC: HO.MRI 12:52
PROVIDERS: Visit Provider Nurse Practitioner Family
DX: M51.360 Other intervertebral disc degeneration, lumbar region with discogenic back pain only (principal); M47.816 Spondylosis without myelopathy or radiculopathy, lumbar region; Z87.39 Personal history of other diseases of the musculoskeletal system and connective tissue
CPT/HCPCS: 72157; 72158; A9585

== ENCOUNTER → 2025-02-23 12:54 | Outpatient (BNV) | payer OTHER, SELFPAY | PROVIDERS: Visit Provider Radiology Diagnostic Radiology | DX: M48.04 Spinal stenosis, thoracic region (principal); M99.63 Osseous and subluxation stenosis of intervertebral foramina of lumbar region | CPT/HCPCS: 72157; 72158 ==

== ENCOUNTER 2025-02-24 14:27 | Outpatient (AMB) | payer OTHER, SELFPAY ==
[2025-02-24 14:29] VITALS: BP 136/78; PULSE 71; TEMP 36.2; O2SAT 95; BMI 31.0
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
== END 2025-02-24 15:05 | disposition home or self-care (01) ==
LOC: HO.HMCH 14:28
DX: M51.360 Other intervertebral disc degeneration, lumbar region with discogenic back pain only (principal); E66.9 Obesity, unspecified; Z68.31 Body mass index [BMI] 31.0-31.9, adult; M47.816 Spondylosis without myelopathy or radiculopathy, lumbar region; K59.01 Slow transit constipation; I83.93 Asymptomatic varicose veins of bilateral lower extremities; R73.03 Prediabetes

== ENCOUNTER → 2025-02-24 14:27 | Outpatient (BNVA) | payer OTHER, SELFPAY | DX: M47.816 Spondylosis without myelopathy or radiculopathy, lumbar region (principal); M47.814 Spondylosis without myelopathy or radiculopathy, thoracic region; M51.360 Other intervertebral disc degeneration, lumbar region with discogenic back pain only; R73.03 Prediabetes; L65.9 Nonscarring hair loss, unspecified; K59.01 Slow transit constipation; I83.93 Asymptomatic varicose veins of bilateral lower extremities; E66.9 Obesity, unspecified; Z68.31 Body mass index [BMI] 31.0-31.9, adult | CPT/HCPCS: 99212 ==

== ENCOUNTER 2025-03-28 13:28 | Outpatient (REF) | payer OTHER, SELFPAY ==
--- NOTE | ~2025-03-28 | US_ITS ---
EXAMINATION: US LOWER EXTREMITY VENOUS (REFLUX EXAM), BILATERAL CLINICAL INFORMATION: I83.12. Varices. COMPARISON: None. TECHNIQUE: Color flow triplex imaging and compression Doppler was performed to evaluate both the deep and the superficial systems bilaterally. To evaluate the superficial system, the examination was performed in the upright position. Color-flow Doppler ultrasound and compression ultrasound were utilized. In addition, maneuvers were utilized to demonstrate reflux. FINDINGS: 1. DEEP VENOUS ULTRASOUND OF THE RIGHT LOWER EXTREMITY: Common Femoral Vein: Compressible, normal respiratory variation and augmented flow. Femoral Vein: Compressible, normal color flow and augmentation. Popliteal Vein: Compressible, normal augmentation. Deep Reflux: There is no evidence of reflux in the deep system in either the common femoral vein, superficial femoral or the popliteal vein. There is no evidence of a Fitch's cyst. 2. SUPERFICIAL ULTRASOUND WITH DOPPLER OF RIGHT LOWER EXTREMITY: GREAT SAPHENOUS VEIN: Saphenofemoral Junction: 0.7 cm; Reflux: 0 ms Proximal Thigh: 0.4 cm; Reflux: 0 ms Mid Thigh: 0.3 cm; Reflux: 0 ms Distal Thigh: 0.2 cm; Reflux: 0 ms At Knee: 0.1 cm; Reflux: 960 ms Proximal Calf: 0.3 cm; Reflux: 2816 ms Mid Calf: 0.2 cm; Reflux: 0 ms Distal Calf: 0.2 cm; Reflux: 876 ms DUPLICATED MEDIAL GREAT SAPHENOUS VEIN: Diameter: None imaged Reflux: NA DUPLICATED LATERAL GREAT SAPHENOUS VEIN: Diameter: 0.4 cm. Reflux: NA SMALL SAPHENOUS VEIN: Saphenopopliteal Junction: 0.1 cm; Reflux: 0 ms Proximal: 0.3 cm; Reflux: 0 ms Distal: 0.2 cm; Reflux: 0 ms VEIN OF GIACOMINI: Size: NA Reflux: NA PERFORATORS: Location: Small saphenous vein, mid segment. Mid thigh. Size: 0.4 cm. Reflux: NA VARICOSITIES: Location: Small saphenous vein, mid and proximal segment. Proximal and mid thigh. Size: 0.2-0.3 cm. Reflux: 1004 ms in the proximal thigh. 2696 ms in the mid thigh. 3. DEEP VENOUS ULTRASOUND OF THE LEFT LOWER EXTREMITY: Common Femoral Vein: Compressible, normal respiratory variation and augmented flow. Femoral Vein: Compressible, normal color flow and augmentation. Popliteal Vein: Compressible, normal augmentation. Deep Reflux: There is no evidence of reflux in the deep system in either the common femoral vein, superficial femoral or the popliteal vein. There is no evidence of a Fitch's cyst. 4. SUPERFICIAL ULTRASOUND WITH DOPPLER OF LEFT LOWER EXTREMITY: GREAT SAPHENOUS VEIN: Saphenofemoral Junction: 0.7 cm; Reflux: 0 ms Proximal Thigh: 0.5 cm; Reflux: 0 ms Mid Thigh: 0.3 cm; Reflux: 0 ms Distal Thigh: 0.3 cm; Reflux: 0 ms At Knee: 0.3 cm; Reflux: 0 ms Proximal Calf: 0.5 cm; Reflux: 0 ms Mid Calf: 0.2 cm; Reflux: 0 ms Distal Calf: 0.2 cm; Reflux: 0 ms DUPLICATED MEDIAL GREAT SAPHENOUS VEIN: Diameter: None imaged Reflux: NA DUPLICATED LATERAL GREAT SAPHENOUS VEIN: Diameter: 0.2-0.3 cm. Reflux: NA SMALL SAPHENOUS VEIN: Saphenopopliteal Junction: 0.3 cm; Reflux: 0 ms Proximal: 0.2 cm; Reflux: 0 ms Distal: 0.1 cm; Reflux: 0 ms VEIN OF GIACOMINI: Size: NA Reflux: NA PERFORATORS: Location: Mid thigh. Size: 0.2-0.3 cm. Reflux: NA VARICOSITIES: Location: Proximal thigh and mid lateral calf. Size: 0.4 cm. Reflux: NA US/US venous duplex LE BI IMPRESSION: Right: Venous insufficiency, great saphenous vein at the knee, below knee and at the ankle. 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 Perforators without reflux. Left: No venous insufficiency. Perforators and varices without reflux. Electronically signed by: Tj Barrera MD 03/28/2025 02:37 PM EDT
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
== END 2025-03-28 13:29 | disposition home or self-care (01) ==
LOC: HO.US 13:28
PROVIDERS: Visit Provider Surgery Vascular Surgery
DX: I83.12 Varicose veins of left lower extremity with inflammation (principal)
CPT/HCPCS: 93970

== ENCOUNTER → 2025-03-28 13:29 | Outpatient (BNV) | payer OTHER, SELFPAY | PROVIDERS: Visit Provider Radiology Diagnostic Radiology | DX: I87.2 Venous insufficiency (chronic) (peripheral) (principal) | CPT/HCPCS: 93970 ==